=== PATIENT | female | born 1990 | race Two or more races ===

== ENCOUNTER 2021-05-26 12:11 | Outpatient (REF) | payer MEDICAID, SELFPAY | END 2021-05-26 12:12 | disposition home or self-care (01) | LOC: HO.LAB 12:11 | PROVIDERS: Visit Provider Internal Medicine | DX: Z20.822 Contact with and (suspected) exposure to COVID-19 (principal) | CPT/HCPCS: C9803; U0003; U0005 ==

== ENCOUNTER 2021-09-15 14:21 | Outpatient (REF) | payer MEDICAID, SELFPAY ==
--- NOTE | ~2021-09-15 | XR_ITS ---
EXAMINATION: XR WRIST, RIGHT CLINICAL INFORMATION: Pain following fall on outstretched hand. COMPARISON: None TECHNIQUE: PA, lateral, oblique, and scaphoid views of the right wrist. FINDINGS: No acute fracture or dislocation. Normal carpal alignment. No joint space narrowing or marginal osteophytes. No osseous erosion. No abnormal soft tissue calcification. XR/XR wrist RT min 3V IMPRESSION: Unremarkable examination.
--- NOTE | ~2021-09-15 | XR_ITS ---
EXAMINATION: XR FEMUR, RIGHT CLINICAL INFORMATION: Pain. COMPARISON: None TECHNIQUE: AP and lateral views of the right femur were obtained. FINDINGS: No acute fracture or dislocation. No joint space narrowing or marginal osteophytes. No lytic or blastic osseous lesion. No abnormal soft tissue calcification. XR/XR femur RT 2V IMPRESSION: Unremarkable examination.
== END 2021-09-15 14:22 | disposition home or self-care (01) ==
LOC: HO.XRAY 14:21
PROVIDERS: Absent Provider Internal Medicine; PCP Internal Medicine; Visit Provider Family Medicine
DX: M25.531 Pain in right wrist (principal); M79.601 Pain in right arm
CPT/HCPCS: 73110; 73552

== ENCOUNTER 2021-10-01 16:00 | Outpatient (RCR) | payer MEDICAID, SELFPAY | END 2021-10-08 11:27 | disposition home or self-care (01) | LOC: HO.PT 16:00 | PROVIDERS: PCP Internal Medicine; Visit Provider Internal Medicine | DX: M54.50 Low back pain, unspecified (principal) | CPT/HCPCS: 97110; 97162 ==

== ENCOUNTER → 2021-12-15 13:25 | Outpatient (BNVA) | payer MEDICAID, SELFPAY | PROVIDERS: PCP Internal Medicine; Referring Provider Internal Medicine; Visit Provider Internal Medicine | DX: Q24.9 Congenital malformation of heart, unspecified (principal); Z98.890 Other specified postprocedural states | CPT/HCPCS: 93005; 99202 ==

== ENCOUNTER → 2022-02-03 15:13 | Outpatient (REF) | payer MEDICAID, SELFPAY ==
--- NOTE | 2022-02-03 15:17 | CA_ITS ---
Transthoracic Echocardiogram Patient (Last, First, Middle): Ruth Healy, Gender: Female Date of : 1990 Age: 32 Procedure Date: 02/03/2022 Procedure Type: Transthoracic Echocardiogram Location: OP Height: 149.86 cm Weight: 79.38 kg BSA: 1.74 m2 Heart Rate: bpm BP: 110 / 60 mmHg Traffic Reporter: JER Referring MD: Raymond Perez MD [facility] Immunology Chief: Sang Schilling MD Symptoms: Q24.9 - Congenital malformation of heart, unspecified Study Quality: Fair ECG Rhythm: Sinus Conclusions: - 1. Normal LV systolic function with LVEF of 55-60% with normal diastolic filling pattern, although global longitudinal strain is reduced which may suggest mild LV systolic dysfunction 2. Mild RV systolic dysfunction 3. Normal cardiac valvular Doppler 4. Normal RV systolic pressure 5. No gross pericardial effusion Findings Left Ventricle Normal left ventricular size, thickness, and systolic function. The visually estimated ejection fraction is between 55-60%. Spectral Doppler is indicative of a normal filling pattern. Right Ventricle Normal right ventricular cavity size. There is mildly decreased right ventricular systolic function. Atria Both atria are normal in size. Interatrial shunt cannot be excluded. Aortic Valve Normal aortic valve structure and function. There is no aortic valve stenosis. There is no aortic valve regurgitation. Mitral Valve Normal mitral valve structure and function. There is trace mitral valve regurgitation. There is no mitral valve stenosis. Pulmonic Valve The pulmonic valve was not well visualized. There is trace pulmonic valve regurgitation. Tricuspid Valve Likely normal tricuspid valve structure and function. There is trace tricuspid valve regurgitation. The right ventricular systolic pressure is normal. The right ventricular systolic pressure is 18 mmHg. Normal right atrial pressure. There is no evidence of pulmonary hypertension. Great Vessels All visible segments of the aorta are normal in size. The pulmonary artery was not well visualized. Venous The inferior vena cava is normal in size and collapses greater than 50% with inspiration. Pericardium/Pleural There is no evidence of pericardial effusion. Prior Study Comparison No prior study available for comparison. Recommendations, Care & Conclusions Consider a DAMION if clinically appropriate. Measurements 2D Linear Measurements IVSd: 0.61 0.6-0.9/0.6-1.0 cm LVIDd: 5.46 3.9-5.3/4.2-5.9 cm LVIDd Index: 3.14 2.4-3.2/2.2-3.1 cm/m2 LVIDs: 4.34 2.0-3.6 cm LVPWd: 0.48 0.7-1.1 cm Ao Root: 2.30 2.1-3.5 cm LA Diam: 4.10 2.7-3.8/3.0-4.0 cm LAIDs Index: 2.36 1.5-2.3 cm/m2 LV Mass: 123.51 67-162/88-224 g LV Mass Index: 70.98 43-95/49-115 g/m2 LVOT Diam: 1.60 3.0+(-)1.3 cm 2D Systolic Function EF 4C: 52.00 >55% EF 2C: 63.40 >55% EF BiP: 57.30 >55% Mitral Valve MV Pk E: 1.04 MV PK A: 0.56 MV Decel Time: 246.00 E/A: 1.80 E'Lateral: 9.90 E'Medial: 6.53 E/E' Med: 15.90 E/E' Lat: 10.50 PHT: 72.00 MVA PHT: 3.06 Decel [place]: 4.23 Aortic Valve AoV Pk Osvaldo: 1.46 AoV Mn Osvaldo: 1.01 AoV VTI: 0.31 AoV Pk Grad: 9.00 Aov Mn Grad: 5.00 IVY Cont.VTI: 1.54 LVOT LVOT Pk Osvaldo: 1.12 LVOT Mn Osvaldo: 0.87 LVOT VTI: 0.24 LVOT Pk Grad: 5.00 LVOT Mn Grad: 3.00 LVOT Diam: 1.60 LVOT Area: 2.01 Diastolic Function MV Pk E: 1.04 MV Pk A: 0.56 E/A: 1.80 E'Medial: 6.53 E/E' Med: 15.90 E' Laterial: 9.90 E/E' Lat: 10.50 Right Ventricle TAPSE (mm): 16.00 TVS' Osvaldo: 7.18 Tricuspid Valve TR Pk Osvaldo: 1.92 TR Pk Grad: 15.00 RA Press: 3.00 RVSP: 18.00 Great Vessels Aorta Ao Root-2D: 2.30 2.0-3.7 cm Sinus of Valsalva: 2.30 2.0-3.5 cm Ao Asc: 1.90 2.1-3.4 cm Ao Arch: 1.70 Ao Desc: 1.50 Pulmonary Veins Pulm Vein S/D 1.10 Pulmonary Valve PV Pk Osvaldo: 1.49 PV Min Osvaldo: 0.99 Peak PV Grad: 9.00 PV Mn Grad: 4.00 Updated in Other Vendor System with Status of Final Sang Schilling MD electronically signed on 02/04/2022 8:56:28 AM with status of Final
== END ==
LOC: HO.CARD 15:13
PROVIDERS: PCP Internal Medicine; Visit Provider Internal Medicine
DX: Q24.9 Congenital malformation of heart, unspecified (principal)
CPT/HCPCS: 93306

== ENCOUNTER → 2022-02-16 12:04 | Outpatient (BNVA) | payer MEDICAID, SELFPAY | PROVIDERS: PCP Internal Medicine; Referring Provider Internal Medicine; Visit Provider Internal Medicine | DX: Q24.9 Congenital malformation of heart, unspecified (principal) | CPT/HCPCS: 99212 ==

== ENCOUNTER 2022-11-11 16:24 | Emergency (ER) | payer MEDICAID, SELFPAY ==
--- NOTE | ~2022-11-11 | US_ITS ---
EXAMINATION: US PELVIS CLINICAL INFORMATION: Secondary amenorrhea COMPARISON: None available. TECHNIQUE: Ultrasound of the pelvis is performed using both transabdominal and transvaginal transducers along with Doppler. Transvaginal imaging is performed due to inadequate visualization transabdominally. FINDINGS: Uterus: The uterus is anteverted and measures 8.9 x 4.8 x 5.3 cm. The double wall endometrial thickness is 12 mm. The uterus is smooth in contour and has normal myometrial echogenicity. No visible fibroid. Nabothian cysts are present in the cervix Adnexa: Both ovaries are visualized. There is normal color flow to the adnexa. There is no ovarian torsion. There is no pelvic ascites or fluid collection. Right ovary measures 2.8 x 1.8 x 1.8 cm for a volume of 4.8 mL. Left ovary measures 2.7 x 1.8 x 1.6 cm for a volume of 4.1 mL. US/US pelvic and transvaginal IMPRESSION: Negative study.
[2022-11-11 16:49] VITALS: BP 136/68; PULSE 78; RESP 18; TEMP 36.4; O2SAT 97; BMI 39.4
--- NOTE | 2022-11-11 16:50 | ED.ABDPAIN ---
HPI - Abdominal Pain General Chief Complaint: Abdominal Pain <TONY Moreau - Last Filed: 11/11/22 16:53> Stated Complaint: Abdominal Pain/ No period in 2 months <TONY Moreau - Last Filed: 11/11/22 16:53> Time Seen by Provider: 11/11/22 19:41 <TONY Moreau - Last Filed: 11/11/22 16:53> Source: patient, RN notes reviewed and all round butcher <Timbo Gerber - Last Filed: 11/11/22 22:47> Mode of arrival: ambulatory <Timbo Gerber - Last Filed: 11/11/22 22:47> Limitations: language barrier <Timbo Gerber - Last Filed: 11/11/22 22:47> History of Present Illness HPI narrative: 32-year-old female with past medical history significant for tubal ligation presents for evaluation of abdominal pain. Patient reports that she has not had her menstrual cycle in 2 months which is abnormal for her She is sexually active but due to a tubal ligation 9 years ago did not believe she is She reports her pain is mild, 4 of 10 Denies any fevers or chills Denies any nausea vomiting, diarrhea. Does not feel that she is constipated <Timbo Gerber - Last Filed: 11/11/22 22:47> Related Data Home Medications: Previous Rx's Medication Instructions Recorded nitrofurantoin 100 mg PO BID #10 caps 11/11/22 monohydrate/macrocrystals 100 mg capsule (Macrobid) <TONY Moreau - Last Filed: 11/11/22 16:53> Allergies/Adverse Reactions: Allergies Allergy/AdvReac Type Severity Reaction Status Date / Time aspirin Allergy Unknown swelling Verified 02/16/22 12:35 all over <TONY Moreau - Last Filed: 11/11/22 16:53> Review of Systems Constitutional: Reports as per HPI, Denies chills, Denies fatigue, Denies fever(s) and Denies headache(s) <Timbo Gerber - Last Filed: 11/11/22 22:47> Denies headache(s) <Timbo Gerber - Last Filed: 11/11/22 22:47> Cardiovascular: Denies chest pain and Denies dyspnea <Timbo Gerber - Last Filed: 11/11/22 22:47> Respiratory: Denies cough and Denies dyspnea <Timbo Gerber - Last Filed: 11/11/22 22:47> Gastrointestinal: Reports abdominal pain, Denies constipation and Denies vomiting <Timbo Gerber - Last Filed: 11/11/22 22:47> Genitourinary: Denies dysuria <Timbo Gerber - Last Filed: 11/11/22 22:47> Comments: No menstrual cycle x2 months <Timbo Gerber - Last Filed: 11/11/22 22:47> Denies headache(s) and Denies focal weakness <Timbo Gerber - Last Filed: 11/11/22 22:47> Endocrine: Denies fatigue <Timbo Gerber - Last Filed: 11/11/22 22:47> [facility] Past Medical History Medical History: Medical History (Updated 11/11/22 @ 22:46 by Timbo Gerber) Congenital heart disease <TONY Moreau - Last Filed: 11/11/22 16:53> Surgical History: Surgical History History of heart surgery <TONY Moreau - Last Filed: 11/11/22 16:53> Family History Family History: Family History Father No problems noted. Mother No problems noted. <TONY Moreau - Last Filed: 11/11/22 16:53> Social History Social History: Social History Patient Tobacco Use Status: Never used Tobacco Advance Directives: No Advance Directives Information Provided: No <TONY Moreau - Last Filed: 11/11/22 16:53> Physical Exam ED Vital Signs: Vital Signs - 24 hr 11/11/22 16:49 11/11/22 17:44 11/11/22 20:00 Temperature 97.6 F 98.1 F 98.0 F Pulse Rate 78 71 70 Respiratory Rate 18 16 16 Blood Pressure 136/68 117/53 L 118/60 Pulse Oximetry 97 99 99 Oxygen Delivery Method Room Air Room Air Room Air BMI result Body Mass Index 39.4 <TONY Moreau - Last Filed: 11/11/22 16:53> Vital Signs - 24 hr 11/11/22 16:49 11/11/22 17:44 11/11/22 20:00 Temperature 97.6 F 98.1 F 98.0 F Pulse Rate 78 71 70 Respiratory Rate 18 16 16 Blood Pressure 136/68 117/53 L 118/60 Pulse Oximetry 97 99 99 Oxygen Delivery Method Room Air Room Air Room Air BMI result Body Mass Index 39.4 <Timbo Gerber - Last Filed: 11/11/22 22:47> Const General: healthy appearing, comfortable, no acute distress, alert and awake <Timbo Lan[place]winnett - Last Filed: 11/11/22 22:47> Nutritional Appearance: well nourished <Timbo O - Last Filed: 11/11/22 22:47> Orientation/consciousness: patient oriented x3 <Timbo Lan[place]inn[place] - Last Filed: 11/11/22 22:47> HENMT Head: Yes normocephalic and Yes atraumatic <Timbo - Last Filed: 11/11/22 22:47> Throat: Yes posterior oropharynx normal <Timbo [place] - Last Filed: 11/11/22 22:47> Eyes Eyelids: Yes eyelids normal <Timbo [place] - Last Filed: 11/11/22 22:47> Conjunctivae: conjunctivae normal <Timbo [place] - Last Filed: 11/11/22 22:47> Sclerae: sclerae normal < - Last Filed: 11/11/22 22:47> Corneas: corneas normal <Timbo - Last Filed: 11/11/22 22:47> Pupils: Equal, round and reactive pupils present <Timbo Curriey - Last Filed: 11/11/22 22:47> EOM: EOMs intact bilaterally < - Last Filed: 11/11/22 22:47> Neck Neck: Yes full ROM < Last Filed: 11/11/22 22:47> Resp Effort & Inspection: normal respiratory effort, able to speak in complete sentences, no audible wheezes and not labored < Last Filed: 11/11/22 22:47> Auscultation: clear to auscultation bilaterally < Last Filed: 11/11/22 22:47> Cardio Rate: regular rate < - Last Filed: 11/11/22 22:47> Rhythm: regular rhythm < - Last Filed: 11/11/22 22:47> GI Inspection: No distended < Last Filed: 11/11/22 22:47> Palpation (GI): Soft to palpation, not firm, Tenderness to palpation present (GI) suprapubicly, no guarding and not rigid < Last Filed: 11/11/22 22:47> Auscultation: normoactive bowel sounds < - Last Filed: 11/11/22 22:47> Skin General skin exam: no rashes or lesions noted and elasticity normal < Last Filed: 11/11/22 22:47> Neuro General: patient oriented x3 < Last Filed: 11/11/22 22:47> Cranial nerves: Yes CN's II-XII intact bilaterally, Yes Equal, round and reactive pupils present and Yes Bilaterally intact EOM present < Last Filed: 11/11/22 22:47> Cognition (Neuro): normal cognition < - Last Filed: 11/11/22 22:47> Extrem Other: Moving all extremities well without any obvious deformities < Last Filed: 11/11/22 22:47> Course Course Course Narrative: This is an RME: Additional HPI, ROS, PE not included below will be deferred to primary provider. 32-year-old female history of congenital heart disease presenting to the emergency department with complaints of diffuse abdominal pain and nausea x2 months. Reports she had an operation so she can get . Denies vomiting, fevers, chills, chest pain, shortness of breath, headache, vision changes, dizziness, vaginal bleeding/ discharge and weakness. Physical exam diffuse tenderness. Normoactive BS Plan labs, urine, HCG <TONY Moreau - Last Filed: 11/11/22 16:53> Reevaluation(s) Reevaluation #1: Patient's entire workup large unremarkable with exception of UTI. Lab work without significant abnormality, ultrasound without significant abnormality. This was all discussed with the patient. at this point is unclear whether patient has secondary amenorrhea. She is definitely not . But she will follow-up with her PCP/OBGYN regarding this <Timbo Gerber - Last Filed: 11/11/22 22:47> Time: 22:43 <Timbo Gerber - Last Filed: 11/11/22 22:47> Medical Decision Making Medical Decision Making [facility] Narrative: 32-year-old female presents for evaluation of lower abdominal pain and secondary amenorrhea. Her hCG is negative. A UA is still pending to rule out UTI. Will get an ultrasound to evaluate for uterine fibroids or masses. Patient's labs are within normal limits. She has no GI symptoms to suggest intra-abdominal infection. Therefore CT imaging will be deferred at this time. Vital signs are currently stable and the patient is quite well appearing <Timbo Gerber - Last Filed: 11/11/22 22:47> Differential Diagnosis Abdominal pain Early menopause Ectopic Uterine fibroids Ovarian cyst Constipation <Timbo Gerber - Last Filed: 11/11/22 22:47> Lab Data [facility] Lab Attestation statement: I reviewed the patient's lab results. <Timbo Gerber - Last Filed: 11/11/22 22:47> Result Diagrams: 11/11/22 17:30 11/11/22 17:30 <TONY Moreau - Last Filed: 11/11/22 16:53> Labs: Lab Results 11/11/22 11/11/22 11/11/22 Range/Units 17:30 17:30 17:30 WBC 7.2 (4.8-10.8) X10*3/uL RBC 4.65 (4.20-5.50) X10*6/uL Hgb 13.4 (12.0-16.0) g/dl Hct 39.9 (37.0-47.0) % MCV 85.8 (80.0-98.0) fL MCH 28.8 (27.0-33.0) pg MCHC 33.6 (31.0-35.0) g/dl RDW 12.0 (11.0-16.0) % Plt Count 322 (160-400) X10*3/uL MPV 10.1 (9.4-12.3) fL Immature Gran % (Auto) 0.3 (0.0-0.4) % Neut % (Auto) 66.9 (45-73) % Lymph % (Auto) 24.6 (20-40) % [place] % (Auto) 6.8 (2-11) % Eos % (Auto) 0.8 (0-4) % Baso % (Auto) 0.6 (0-2) % Lymph # (Auto) 1.8 (1.2-4.9) X10*3/uL [place] # (Auto) 0.5 (0.1-1.2) X10*3/uL Eos # (Auto) 0.1 (0.0-0.4) X10*3/uL Baso # (Auto) 0.0 (0.0-0.2) X10*3/uL Abs Immat Gran (auto) 0.02 (0.00-0.03) X10*3/uL Absolute Neuts (auto) 4.8 (2.0-8.3) x10*3/uL Absolute Nucleated RBC 0.000 (0.0-0.012) X10*3/uL Nucleated RBC % (auto) 0.0 (0.0-0.2) /100WBC Smear Tech's Comments VERIFIED Sodium 141 (135-145) mmol/L Potassium 4.4 (3.3-5.1) mmol/L Chloride 109 H (96-108) mmol/L Carbon Dioxide 24 (22-29) mmol/L Anion Gap 12 (12-20) BUN 10 (9-16) mg/dL Creatinine 0.79 (0.5-1.4) mg/dL Estim Creat Clear Calc 100.7 Estimated GFR > 60 Random Glucose 83 (60-115) mg/dL Calcium 9.3 (8.4-10.2) mg/dL Magnesium 2.0 (1.6-2.6) mg/dL Total Bilirubin 0.6 (0.0-1.0) mg/dL AST 19 (5-31) U/L ALT 16 (0-31) U/L Alkaline Phosphatase 96 (39-117) U/L Total Protein 7.5 (6.5-8.0) g/dL Albumin 4.1 (3.5-5.0) g/dL Lipase 13 (8-78) U/L Beta HCG, Quant < 2 mIU/mL Urine Color Urine Appearance Urine pH (5.0-9.0) Ur Specific [place] (1.005-1.025) Urine Protein (Neg-Trace) mg/dL Urine Glucose (UA) (Negative) mg/dL Urine Ketones (Negative) mg/dL Urine Blood (Negative) Urine Nitrite (Negative) Ur Leukocyte Esterase (Negative) Urine RBC (0-2) /HPF Urine WBC (0-5) /HPF Ur Squamous Epith Cells (0-2) /HPF Urine Bacteria (None Seen) Hyaline Casts (0-2) /LPF COVID-19 (LORRI) Negative (Negative) COVID-19 Clin Com See Note 11/11/22 Range/Units 20:56 WBC (4.8-10.8) X10*3/uL RBC (4.20-5.50) X10*6/uL Hgb (12.0-16.0) g/dl Hct (37.0-47.0) % MCV (80.0-98.0) fL MCH (27.0-33.0) pg MCHC (31.0-35.0) g/dl RDW (11.0-16.0) % Plt Count (160-400) X10*3/uL MPV (9.4-12.3) fL Immature Gran % (Auto) (0.0-0.4) % Neut % (Auto) (45-73) % Lymph % (Auto) (20-40) % [place] % (Auto) (2-11) % Eos % (Auto) (0-4) % Baso % (Auto) (0-2) % Lymph # (Auto) (1.2-4.9) X10*3/uL [place] # (Auto) (0.1-1.2) X10*3/uL Eos # (Auto) (0.0-0.4) X10*3/uL Baso # (Auto) (0.0-0.2) X10*3/uL Abs Immat Gran (auto) (0.00-0.03) X10*3/uL Absolute Neuts (auto) (2.0-8.3) x10*3/uL Absolute Nucleated RBC (0.0-0.012) X10*3/uL Nucleated RBC % (auto) (0.0-0.2) /100WBC Smear Tech's Comments Sodium (135-145) mmol/L Potassium (3.3-5.1) mmol/L Chloride (96-108) mmol/L Carbon Dioxide (22-29) mmol/L Anion Gap (12-20) BUN (9-16) mg/dL Creatinine (0.5-1.4) mg/dL Estim Creat Clear Calc Estimated GFR Random Glucose (60-115) mg/dL Calcium (8.4-10.2) mg/dL Magnesium (1.6-2.6) mg/dL Total Bilirubin (0.0-1.0) mg/dL AST (5-31) U/L ALT (0-31) U/L Alkaline Phosphatase (39-117) U/L Total Protein (6.5-8.0) g/dL Albumin (3.5-5.0) g/dL Lipase (8-78) U/L Beta HCG, Quant mIU/mL Urine Color Yellow Urine Appearance Clear Urine pH 6.0 (5.0-9.0) Ur Specific [place] 1.025 (1.005-1.025) Urine Protein Negative (Neg-Trace) mg/dL Urine Glucose (UA) Negative (Negative) mg/dL Urine Ketones Negative (Negative) mg/dL Urine Blood Trace H (Negative) Urine Nitrite Negative (Negative) Ur Leukocyte Esterase Moderate (2+) H (Negative) Urine RBC 0-2 (0-2) /HPF Urine WBC 6-10 H (0-5) /HPF Ur Squamous Epith Cells 6-10 (0-2) /HPF Urine Bacteria 2+ (None Seen) Hyaline Casts 0-2 (0-2) /LPF COVID-19 (LORRI) (Negative) COVID-19 Clin Com <TONY Moreau - Last Filed: 11/11/22 16:53> Lab Results 11/11/22 11/11/22 11/11/22 Range/Units 17:30 17:30 17:30 WBC 7.2 (4.8-10.8) X10*3/uL RBC 4.65 (4.20-5.50) X10*6/uL Hgb 13.4 (12.0-16.0) g/dl Hct 39.9 (37.0-47.0) % MCV 85.8 (80.0-98.0) fL MCH 28.8 (27.0-33.0) pg MCHC 33.6 (31.0-35.0) g/dl RDW 12.0 (11.0-16.0) % Plt Count 322 (160-400) X10*3/uL MPV 10.1 (9.4-12.3) fL Immature Gran % (Auto) 0.3 (0.0-0.4) % Neut % (Auto) 66.9 (45-73) % Lymph % (Auto) 24.6 (20-40) % [place] % (Auto) 6.8 (2-11) % Eos % (Auto) 0.8 (0-4) % Baso % (Auto) 0.6 (0-2) % Lymph # (Auto) 1.8 (1.2-4.9) X10*3/uL [place] # (Auto) 0.5 (0.1-1.2) X10*3/uL Eos # (Auto) 0.1 (0.0-0.4) X10*3/uL Baso # (Auto) 0.0 (0.0-0.2) X10*3/uL Abs Immat Gran (auto) 0.02 (0.00-0.03) X10*3/uL Absolute Neuts (auto) 4.8 (2.0-8.3) x10*3/uL Absolute Nucleated RBC 0.000 (0.0-0.012) X10*3/uL Nucleated RBC % (auto) 0.0 (0.0-0.2) /100WBC Smear Tech's Comments VERIFIED Sodium 141 (135-145) mmol/L Potassium 4.4 (3.3-5.1) mmol/L Chloride 109 H (96-108) mmol/L Carbon Dioxide 24 (22-29) mmol/L Anion Gap 12 (12-20) BUN 10 (9-16) mg/dL Creatinine 0.79 (0.5-1.4) mg/dL Estim Creat Clear Calc 100.7 Estimated GFR > 60 Random Glucose 83 (60-115) mg/dL Calcium 9.3 (8.4-10.2) mg/dL Magnesium 2.0 (1.6-2.6) mg/dL Total Bilirubin 0.6 (0.0-1.0) mg/dL AST 19 (5-31) U/L ALT 16 (0-31) U/L Alkaline Phosphatase 96 (39-117) U/L Total Protein 7.5 (6.5-8.0) g/dL Albumin 4.1 (3.5-5.0) g/dL Lipase 13 (8-78) U/L Beta HCG, Quant < 2 mIU/mL Urine Color Urine Appearance Urine pH (5.0-9.0) Ur Specific [place] (1.005-1.025) Urine Protein (Neg-Trace) mg/dL Urine Glucose (UA) (Negative) mg/dL Urine Ketones (Negative) mg/dL Urine Blood (Negative) Urine Nitrite (Negative) Ur Leukocyte Esterase (Negative) Urine RBC (0-2) /HPF Urine WBC (0-5) /HPF Ur Squamous Epith Cells (0-2) /HPF Urine Bacteria (None Seen) Hyaline Casts (0-2) /LPF COVID-19 (LORRI) Negative (Negative) COVID-19 Clin Com See Note 11/11/22 Range/Units 20:56 WBC (4.8-10.8) X10*3/uL RBC (4.20-5.50) X10*6/uL Hgb (12.0-16.0) g/dl Hct (37.0-47.0) % MCV (80.0-98.0) fL MCH (27.0-33.0) pg MCHC (31.0-35.0) g/dl RDW (11.0-16.0) % Plt Count (160-400) X10*3/uL MPV (9.4-12.3) fL Immature Gran % (Auto) (0.0-0.4) % Neut % (Auto) (45-73) % Lymph % (Auto) (20-40) % [place] % (Auto) (2-11) % Eos % (Auto) (0-4) % Baso % (Auto) (0-2) % Lymph # (Auto) (1.2-4.9) X10*3/uL [place] # (Auto) (0.1-1.2) X10*3/uL Eos # (Auto) (0.0-0.4) X10*3/uL Baso # (Auto) (0.0-0.2) X10*3/uL Abs Immat Gran (auto) (0.00-0.03) X10*3/uL Absolute Neuts (auto) (2.0-8.3) x10*3/uL Absolute Nucleated RBC (0.0-0.012) X10*3/uL Nucleated RBC % (auto) (0.0-0.2) /100WBC Smear Tech's Comments Sodium (135-145) mmol/L Potassium (3.3-5.1) mmol/L Chloride (96-108) mmol/L Carbon Dioxide (22-29) mmol/L Anion Gap (12-20) BUN (9-16) mg/dL Creatinine (0.5-1.4) mg/dL Estim Creat Clear Calc Estimated GFR Random Glucose (60-115) mg/dL Calcium (8.4-10.2) mg/dL Magnesium (1.6-2.6) mg/dL Total Bilirubin (0.0-1.0) mg/dL AST (5-31) U/L ALT (0-31) U/L Alkaline Phosphatase (39-117) U/L Total Protein (6.5-8.0) g/dL Albumin (3.5-5.0) g/dL Lipase (8-78) U/L Beta HCG, Quant mIU/mL Urine Color Yellow Urine Appearance Clear Urine pH 6.0 (5.0-9.0) Ur Specific [place] 1.025 (1.005-1.025) Urine Protein Negative (Neg-Trace) mg/dL Urine Glucose (UA) Negative (Negative) mg/dL Urine Ketones Negative (Negative) mg/dL Urine Blood Trace H (Negative) Urine Nitrite Negative (Negative) Ur Leukocyte Esterase Moderate (2+) H (Negative) Urine RBC 0-2 (0-2) /HPF Urine WBC 6-10 H (0-5) /HPF Ur Squamous Epith Cells 6-10 (0-2) /HPF Urine Bacteria 2+ (None Seen) Hyaline Casts 0-2 (0-2) /LPF COVID-19 (LORRI) (Negative) COVID-19 Clin Com <Timbo Gerber - Last Filed: 11/11/22 22:47> Independent Interpretation I performed an independent interpretation of an: Ultrasound (No significant abnormality) <Timbo Gerber - Last Filed: 11/11/22 22:47> Discharge Plan Discharge Clinical Impression: Urinary tract infection, Amenorrhea, secondary <TONY Moreau - Last Filed: 11/11/22 16:53> Patient Disposition: Home, Self-Care <TONY Moreau - Last Filed: 11/11/22 16:53> Instructions: Urinary Tract Infection in Women (DC) <TONY Moreau - Last Filed: 11/11/22 16:53> Additional Instructions: Take Macrobid twice daily for the next 5 days to treat urinary tract infection. Her blood work and ultrasound today was without any abnormal findings Follow-up with your OBGYN to discuss why you are no longer having her. <TONY Moreau - Last Filed: 11/11/22 16:53> Prescriptions: New nitrofurantoin monohyd/m-cryst [Macrobid] 100 mg capsule 100 mg PO BID Qty: 10 0RF Rx Instructions: must administer with a meal/food <TONY Moreau - Last Filed: 11/11/22 16:53>
[2022-11-11 17:44] VITALS: BP 117/53; PULSE 71; RESP 16; TEMP 36.7; O2SAT 99
[2022-11-11 17:47] LABS: Basophils Percent Auto 0.6 % (0-2); Eosinophils Absolute Auto 0.1 X10*3/uL (0.0-0.4); Eosinophils Percent Auto 0.8 % (0-4); PLT CLUMP 1; SCAN SMEAR FLAG 1
[2022-11-11 17:49] LABS: Hematocrit 39.9 % (37.0-47.0); Hemoglobin 13.4 g/dl (12.0-16.0); Imm Gran Abs Auto 0.02 X10*3/uL (0.00-0.03); Imm Gran Pct Auto 0.3 % (0.0-0.4); Lymphocytes Absolute Auto 1.8 X10*3/uL (1.2-4.9); Lymphocytes Percent Auto 24.6 % (20-40); MANUAL DIFF FLAG SCAN; Mean Corpuscular HGB Conc 33.6 g/dl (31.0-35.0); Mean Corpuscular Hemoglobin 28.8 pg (27.0-33.0); Mean Corpuscular Volume 85.8 fL (80.0-98.0); Mean Platelet Volume 10.1 fL (9.4-12.3); Monocytes Absolute Auto 0.5 X10*3/uL (0.1-1.2); Monocytes Percent Auto 6.8 % (2-11); Neutrophils Absolute Auto 4.8 x10*3/uL (2.0-8.3); Neutrophils Percent Auto 66.9 % (45-73); Red Blood Count 4.65 X10*6/uL (4.20-5.50)
[2022-11-11 17:52] LABS: COVID-19 Test Negative (Negative); IDNOW Serial# BCCEAD1C
[2022-11-11 17:59] LABS: Alanine Aminotransferase 16 U/L (0-31); Albumin Level 4.1 g/dL (3.5-5.0); Alkaline Phosphatase 96 U/L (39-117); Anion Gap 12 (12-20); Aspartate Amino Transferase 19 U/L (5-31); Bilirubin Total 0.6 mg/dL (0.0-1.0); Blood Urea Nitrogen 10 mg/dL (9-16); Calcium 9.3 mg/dL (8.4-10.2); Carbon Dioxide 24 mmol/L (22-29); Chloride 109 mmol/L (96-108); Creatinine Clr Calc Pharmacy 100.7; Estimated Glomerular Filt Rate > 60; Glucose Random 83 mg/dL (60-115); HCG Quantitative < 2 mIU/mL; Lipase 13 U/L (8-78); Potassium 4.4 mmol/L (3.3-5.1); Sodium 141 mmol/L (135-145); Total Protein 7.5 g/dL (6.5-8.0)
[2022-11-11 18:12] LABS: Platelet Count 322 X10*3/uL (160-400); White Blood Count 7.2 X10*3/uL (4.8-10.8)
[2022-11-11 18:13] LABS: SLIDE REVIEW VERIFIED
[2022-11-11 20:00] VITALS: BP 118/60; PULSE 70; RESP 16; TEMP 36.7; O2SAT 99
[2022-11-11 21:17] LABS: Appearance Urine Clear; Color Urine Yellow; Glucose Urine UA Negative (Negative); Leukocyte Esterase Urine Moderate (2+) (Negative); Nitrite Urine Negative (Negative); Specific Gravity - Urine 1.025 (1.005-1.025); UMIC TRIGGER UACC YES; Urine Blood Trace (Negative); Urine Ketones Negative (Negative); Urine Protein Negative (Neg-Trace)
[2022-11-11 21:22] LABS: Bacteria Urine 2+ (None Seen); Hyaline Casts Urine 0-2 /LPF (0-2); RBC Urine 0-2 /HPF (0-2); UACC Culture Trigger YES
== END 2022-11-11 23:05 | disposition home or self-care (01) ==
PROVIDERS: Physician Assistant; Emergency Provider Emergency Medicine Emergency Medical Services; PCP Internal Medicine
DX: N39.0 Urinary tract infection, site not specified (principal); N91.0 Primary amenorrhea; Z20.822 Contact with and (suspected) exposure to COVID-19; Z20.828 Contact with and (suspected) exposure to other viral communicable diseases; Z79.899 Other long term (current) drug therapy
CPT/HCPCS: 36415; 76830; 76856; 80053; 81001; 81003; 83690; 83735; 84702; 85025; 87086; 87147; 87635; 99284

== ENCOUNTER 2023-04-09 22:35 | Emergency (ER) | payer MEDICAID, SELFPAY ==
[2023-04-09 22:41] VITALS: BP 113/50; PULSE 74; RESP 18; TEMP 37.2; O2SAT 96; BMI 37.4
--- NOTE | 2023-04-10 00:38 | ED.GENADULT ---
HPI - General Adult General Chief complaint: Allergic Reaction Stated complaint: Allergic Reaction Time Seen by Provider: 04/10/23 00:27 Source: patient Mode of arrival: ambulatory Limitations: no limitations History of Present Illness HPI narrative: Patient comes to the emergency room complaining of a possible allergic reaction. Patient states that she is known to be allergic to aspirin. However, she has not had any exposure to aspirin. Patient states that yesterday she started having hives head to toe. Prior to arrival, patient took 2 tablets of Benadryl 25 mg each. Patient denies any difficulty breathing, patient complaining of itchy hives Related Data Previous Rx's Medication Instructions Recorded nitrofurantoin 100 mg PO BID #10 caps 11/11/22 monohydrate/macrocrystals 100 mg capsule (Macrobid) famotidine 40 mg tablet (Pepcid) 40 mg PO DAILY #2 tabs 04/10/23 prednisone 50 mg tablet 50 mg PO DAILY #2 tabs 04/10/23 Allergies Allergy/AdvReac Type Severity Reaction Status Date / Time aspirin Allergy Unknown swelling Verified 02/16/22 12:35 all over Review of Systems Review of Systems: Constitutional : No Weight loss, No Fever, No Chills, No Night Sweats, No Fatigue, No Malaise ENT/Mouth : No Hearing loss, No Ear Pain, No Nasal Congestion, No Sinus Pain, No Hoarseness, No sore throat, No Rhinorrhea, No Swallowing Difficulty Eyes: No Eye Pain, No Swelling, No Redness, No Foreign Body, No Discharge, No Vision Changes Cardiovascular : No Chest Pain, No SOB, No Dyspnea on Exertion, No Orthopnea, No Edema, No Palpitations Respiratory : No Cough, No Sputum, No Wheezing, No Smoke Exposure, No Dyspnea Gastrointestinal : No Nausea, No Vomiting, No Diarrhea, No Constipation, No abdominal Pain, No Hematochezia, No Melena Genitourinary : no irregular bleeding, No Dysuria, No Urinary Frequency, No Hematuria, No Urinary Incontinence, No Urgency, No Flank Pain, No Urinary Flow Changes, No Hesitancy Musculoskeletal : No joint pain, No Myalgias, No Joint Swelling Skin : Complaining of itchy hives head to toe Neuro : No Weakness, No Numbness, No Paresthesias, No Loss of Consciousness, No Dizziness, No Headache Psych : No Anxiety/Panic, No Depression, No SI/HI/AH/VH, No Social Issues, Heme/Lymph: No Bruising, No Bleeding,No Lymphadenopathy Endocrine : No Polyuria, No Polydipsia, No Temperature Intolerance [facility] Past Medical History Medical History Congenital heart disease Surgical History History of heart surgery Family History Family History Father No problems noted. Mother No problems noted. Social History Social History Alcohol intake: never Patient Tobacco Use Status: Never used Tobacco Physical Exam ED Vital Signs: Vital Signs - 24 hr 04/09/23 22:41 Temperature 99.0 F Pulse Rate 74 Respiratory Rate 18 Blood Pressure 113/50 L Pulse Oximetry 96 Oxygen Delivery Method Room Air BMI result Body Mass Index 37.4 Const Other: Appearance: Alert. Oriented X3. No acute distress. Eyes: Pupils equal, round and reactive to light. ENT: Pharynx normal. Neck: Normal inspection. Neck supple. No lymph nodes noted. No crepitus CVS: Normal heart rate and rhythm. Pulses normal. Normal S1 and S2 Respiratory: No respiratory distress. Breath sounds normal. No Wheezing. No rales Abdomen: Soft and nontender. No rigidity. No distention. Skin: Skin warm and dry. Skin nearly back to normal, very mild or thicker in the back, resolved in extremities and abdomen Extremities: No lower extremity edema. No Lacerations. No Rash Neuro: Oriented X 3. No motor deficit. No sensory deficit. Moving all extremities. No slurred speech. CN 2 through 12 grossly intact Psych: calm, cooperative, normal affect Medical Decision Making Medical Decision Making MDM Narrative: -patient already took Benadryl, patient given prednisone in the ED and famotidine. -patient has hives nearly resolved. Patient's vital stable, oxygen saturation 96% on room air. Differential Diagnosis Differential Diagnoses: The differential diagnosis associated with the presentation includes (Allergic reaction, contact dermatitis, skin irritation) Discharge Plan Discharge Clinical Impression: Allergic reaction Patient Disposition: Home, Self-Care Instructions: Allergies (ED), Allergy Testing (ED) Additional Instructions: Please follow-up with your primary care physician. You may need to be referred to immunology for skin allergy testing. Please follow-up with your primary care physician tomorrow. If you have any worsening or new symptoms, please return to the emergency room or call 911 Prescriptions: New prednisone 50 mg tablet 50 mg PO DAILY Qty: 2 0RF famotidine [Pepcid] 40 mg tablet 40 mg PO DAILY Qty: 2 0RF No Action nitrofurantoin monohyd/m-cryst [Macrobid] 100 mg capsule 100 mg PO BID Qty: 10 0RF Rx Instructions: must administer with a meal/food
[2023-04-10] MEDS: predniSONE 20 MG TABLET 60 MG PO (00:43)
[2023-04-10] MEDS: Famotidine 20 MG TABLET PO (00:43)
== END 2023-04-10 00:56 | disposition home or self-care (01) ==
PROVIDERS: Emergency Provider Emergency Medicine
DX: T78.40XA Allergy, unspecified, initial encounter (principal); X58.XXXA Exposure to other specified factors, initial encounter; L50.9 Urticaria, unspecified; R06.00 Dyspnea, unspecified
CPT/HCPCS: 99283; 99284

== ENCOUNTER 2023-04-12 01:19 | Emergency (ER) | payer MEDICAID, SELFPAY ==
[2023-04-12 01:31] VITALS: BP 120/62; PULSE 69; RESP 16; TEMP 36.9; O2SAT 98; BMI 57.6
--- NOTE | 2023-04-12 01:42 | ED_ITS ---
HPI - Allergic Reaction General Chief complaint: Allergic Reaction Stated complaint: Rash, hives Time Seen by Provider: 04/12/23 01:37 Source: patient Mode of arrival: ambulatory Limitations: no limitations History of Present Illness HPI narrative: Patient comes in the emergency room complaining of hives. Patient states that approximately 8 hours ago, patient started noticing hives in her arms. Patient has no difficulty breathing, no angioedema. Patient was seen here 2 days ago, had similar symptoms, improved in the hospital and was discharged home. Patient states that she already made an appointment with her PCP, she will be seen the next 2 days, likely to be referred to immunology Related Data Previous Rx's Medication Instructions Recorded nitrofurantoin 100 mg PO BID #10 caps 11/11/22 monohydrate/macrocrystals 100 mg capsule (Macrobid) famotidine 40 mg tablet (Pepcid) 40 mg PO DAILY #2 tabs 04/10/23 prednisone 50 mg tablet 50 mg PO DAILY #2 tabs 04/10/23 Allergies Allergy/AdvReac Type Severity Reaction Status Date / Time aspirin Allergy Unknown swelling Verified 02/16/22 12:35 all over Review of Systems Review of Systems: Constitutional : No Weight loss, No Fever, No Chills, No Night Sweats, No Fatigue, No Malaise ENT/Mouth : No Hearing loss, No Ear Pain, No Nasal Congestion, No Sinus Pain, No Hoarseness, No sore throat, No Rhinorrhea, No Swallowing Difficulty Eyes: No Eye Pain, No Swelling, No Redness, No Foreign Body, No Discharge, No Vision Changes Cardiovascular : No Chest Pain, No SOB, No Dyspnea on Exertion, No Orthopnea, No Edema, No Palpitations Respiratory : Complaining of GERD, No Cough, No Sputum, No Wheezing, No Smoke Exposure, No Dyspnea Gastrointestinal : No Nausea, No Vomiting, No Diarrhea, No Constipation, No abdominal Pain, No Hematochezia, No Melena Genitourinary : no irregular bleeding, No Dysuria, No Urinary Frequency, No Hematuria, No Urinary Incontinence, No Urgency, No Flank Pain, No Urinary Flow Changes, No Hesitancy Musculoskeletal : No joint pain, No Myalgias, No Joint Swelling Skin : Complaining of hives and itchiness Neuro : No Weakness, No Numbness, No Paresthesias, No Loss of Consciousness, No Dizziness, No Headache Psych : No Anxiety/Panic, No Depression, No SI/HI/AH/VH, No Social Issues, Heme/Lymph: No Bruising, No Bleeding,No Lymphadenopathy Endocrine : No Polyuria, No Polydipsia, No Temperature Intolerance [facility] Past Medical History Medical History Congenital heart disease Surgical History History of heart surgery Family History Family History Father No problems noted. Mother No problems noted. Social History Social History Alcohol intake: never Patient Tobacco Use Status: Never used Tobacco Advance Directives: No Advance Directives Information Provided: Yes Physical Exam ED Vital Signs: Vital Signs - 24 hr 04/12/23 01:31 04/12/23 01:48 Temperature 98.5 F 98.6 F Pulse Rate 69 77 Respiratory Rate 16 15 Blood Pressure 120/62 115/43 L Pulse Oximetry 98 100 Oxygen Delivery Method Room Air Room Air BMI result Body Mass Index 57.6 Const Other: Appearance: Alert. Oriented X3. No acute distress. Eyes: Pupils equal, round and reactive to light. ENT: Pharynx normal. No angioedema Neck: Normal inspection. Neck supple. No lymph nodes noted. No crepitus CVS: Normal heart rate and rhythm. Pulses normal. Normal S1 and S2 Respiratory: No respiratory distress. Breath sounds normal. No Wheezing. No rales Abdomen: Soft and nontender. No rigidity. No distention. Skin: Hives in face chest and arms Extremities: No lower extremity edema. No Lacerations. No Rash Neuro: Oriented X 3. No motor deficit. No sensory deficit. Moving all extremities. No slurred speech. CN 2 through 12 grossly intact Psych: calm, cooperative, normal affect Course Course Course Narrative: -patient receiving IV Solu-Medrol, Benadryl, Pepcid. -also patient complaining of anxiety, states that she has GERD -discussed with the patient that this is likely an environmental factor that she keeps getting re-exposed to which causes allergic reaction. Medications Administered Discontinued Medications Generic Name Dose Route Start Last Admin Trade Name Freq PRN Reason Stop Dose Admin Diphenhydramine HCl 50 mg 04/12/23 01:41 04/12/23 01:56 Diphenhydramine Hcl 50 Mg/Ml Vial IVPUSH 04/12/23 01:42 50 mg ONCE ONE Administration Famotidine 20 mg 04/12/23 01:41 04/12/23 01:56 Famotidine/Pf 20 Mg/2 Ml Vial IVPUSH 04/12/23 01:42 20 mg ONCE ONE Administration Lorazepam 1 mg 04/12/23 01:41 04/12/23 01:56 Lorazepam 1 Mg Tablet PO 04/12/23 01:42 1 mg ONCE ONE Administration Methylprednisolone Sodium Succinate 125 mg 04/12/23 01:41 04/12/23 01:56 Methylprednisolone Sod Succ 125 Mg/2 Ml Vial IVPUSH 04/12/23 01:42 125 mg ONCE ONE Administration Medical Decision Making Medical Decision Making MDM Narrative: -hives resolved. -discussed with the patient that she likely has environmental allergies, patient has an appointment pending with PCP Differential Diagnosis Differential Diagnoses: The differential diagnosis associated with the presentation includes (Environmental allergies, food allergies, hypersensitivity reaction) Admission/Observation Consideration of admission/observation: Escalation of care including admission/observation considered (Patient came in with hives, repeated allergic reaction, patient was considered) Critical Care Time Critical Care Time Critical Care Time: Yes Total Critical Care Time: 45 Attestation: Please follow-up with your primary care physician tomorrow. If you have any worsening or new symptoms, please return to the emergency room or call 911 Discharge Plan Discharge Clinical Impression: Allergic reaction Patient Disposition: Home, Self-Care Instructions: Allergy Testing (ED), General Allergic Reaction (ED) Additional Instructions: Please follow-up with your primary care physician tomorrow. If you have any worsening or new symptoms, please return to the emergency room or call 911 Prescriptions: No Action nitrofurantoin monohyd/m-cryst [Macrobid] 100 mg capsule 100 mg PO BID Qty: 10 0RF Rx Instructions: must administer with a meal/food prednisone 50 mg tablet 50 mg PO DAILY Qty: 2 0RF famotidine [Pepcid] 40 mg tablet 40 mg PO DAILY Qty: 2 0RF
[2023-04-12 01:48] VITALS: BP 115/43; PULSE 77; RESP 15; TEMP 37; O2SAT 100
[2023-04-12] MEDS: Famotidine/PF 20 MG/2 ML VIAL IVPUSH (01:56)
[2023-04-12] MEDS: LORazepam 1 MG TABLET PO (01:56)
[2023-04-12] MEDS: methylPREDNISolone Sod Succ 125 MG/2 ML VIAL IVPUSH (01:56)
[2023-04-12] MEDS: diphenhydrAMINE HCL 50 MG/ML VIAL IVPUSH (01:56)
[2023-04-12 03:49] VITALS: BP 111/46; PULSE 59; RESP 18; TEMP 37.1; O2SAT 97
== END 2023-04-12 05:19 | disposition home or self-care (01) ==
PROVIDERS: Emergency Provider Emergency Medicine
DX: L50.0 Allergic urticaria (principal)
CPT/HCPCS: 96374; 96375; 99284; J1200; J2930

== ENCOUNTER 2023-04-14 21:28 | Emergency (ER) | payer MEDICAID, SELFPAY ==
[2023-04-14 21:32] VITALS: BP 110/66; PULSE 73; RESP 18; TEMP 36.8; O2SAT 98; BMI 37.2
--- NOTE | 2023-04-14 22:10 | PC.NURSE ---
Clinical Medical Transcriptionist present during assessement. Pt yakut speaking only, A/OX4, seen 2 days ago for same sx, presented with itchy, light pink colored full body rash, pt states rash has improved but still present. Pt states SOB/throat tightness yesterday symptoms not currently present. VSS, denies pain.
--- NOTE | 2023-04-14 23:15 | ED_ITS ---
HPI - Allergic Reaction General Chief complaint: Allergic Reaction Stated complaint: body rash Time Seen by Provider: 04/14/23 22:56 Source: patient Mode of arrival: ambulatory Limitations: language barrier (Setswana-speaking remote medical coder utilized) History of Present Illness HPI narrative: Patient is a 33-year-old female who presents emergency department for evaluation of diffuse urticaria. Initial onset of symptoms was 4 days ago, of unknown etiology. They are pruritic in nature. She has not had any respiratory involvement. She states she has been seen in the emergency department previously and her symptoms resolved but they then returned again. At this time she denies any chest pain, shortness of breath, difficulty breathing. Related Data Previous Rx's Medication Instructions Recorded nitrofurantoin 100 mg PO BID #10 caps 11/11/22 monohydrate/macrocrystals 100 mg capsule (Macrobid) famotidine 40 mg tablet (Pepcid) 40 mg PO DAILY #2 tabs 04/10/23 prednisone 50 mg tablet 50 mg PO DAILY #2 tabs 04/10/23 omeprazole 20 mg capsule,delayed 20 mg PO DAILY #30 caps 04/15/23 release Allergies Allergy/AdvReac Type Severity Reaction Status Date / Time aspirin Allergy Unknown swelling Verified 04/14/23 21:40 all over Review of Systems Review of Systems: Yes all other systems are reviewed and are negative PMFSH Past Medical History Attestation statement: The following information was validated with the patient. Source: old records reviewed Medical History Congenital heart disease Surgical History History of heart surgery Family History Family History Father No problems noted. Mother No problems noted. Social History Social History Alcohol intake: never Patient Tobacco Use Status: Never used Tobacco Smoked in Last 30 Days: No Use of substances other than those prescribed or required for medical reasons: No Advance Directives: No Advance Directives Information Provided: No Patient : No Physical Exam ED Vital Signs: Vital Signs - 24 hr 04/14/23 21:32 04/15/23 00:44 Temperature 98.2 F Pulse Rate 73 Respiratory Rate 18 17 Blood Pressure 110/66 Pulse Oximetry 98 Oxygen Delivery Method Room Air BMI result Body Mass Index 37.2 Appearance: Alert.?Oriented to person, place and time. No acute distress.?Normal affect. Eyes: Pupils equal, round and reactive to light.? ENT: Pharynx normal.??Uvula midline. No angioedema. Neck: Normal inspection.? Neck supple.?? CVS: Heart sounds normal. Normal heart rate and rhythm.? Pulses normal.?? Respiratory: No respiratory distress.? Lung sounds clear to auscultation bilaterally?? Abdomen: Soft and non-tender. Normoactive bowel sounds. Skin: Skin warm and dry.? Normal skin color.? Urticaria of the bilateral upper and lower extremities, chest, back Extremities: No lower extremity edema.? Neuro: Moves all extremities spontaneously. Sensation intact bilaterally. Ambulates with normal steady gait. Medications Administered Discontinued Medications Generic Name Dose Route Start Last Admin Trade Name Freq PRN Reason Stop Dose Admin Diphenhydramine HCl 50 mg 04/15/23 00:37 04/15/23 00:58 Diphenhydramine Hcl 50 Mg/Ml Vial IVPUSH 04/15/23 00:38 50 mg ONCE ONE Administration Famotidine 20 mg 04/15/23 00:37 04/15/23 00:58 Famotidine/Pf 20 Mg/2 Ml Vial IVPUSH 04/15/23 00:38 20 mg ONCE ONE Administration Methylprednisolone Sodium Succinate 125 mg 04/15/23 00:37 04/15/23 00:58 Methylprednisolone Sod Succ 125 Mg/2 Ml Vial IVPUSH 04/15/23 00:38 125 mg ONCE ONE Administration Medical Decision Making Medical Decision Making [facility] Narrative: Patient is a 33-year-old female who presents emergency department for evaluation of recurrent urticaria. She has no respiratory compromise, no angioedema. She is speaking clear full sentences. Of note, patient was seen in the emergency department regarding the same symptoms on 04/10/2023 and 04/12/2023. She has previously responded to treatment with Solu-Medrol, diphenhydramine, and famotidine, received medication today with resolution of the urticaria. We discussed that this is likely some type of environmental/food allergy and requires further follow-up. She was advised to follow up outpatient with her primary care provider, and obtain referral to linux unix engineer for further evaluation. We discussed worrisome signs and symptoms that would warrant re-evaluation in the emergency department. All questions were answered. She is stable for discharge. Differential Diagnosis Differential Diagnoses: The differential diagnosis associated with the presentation includes (Environmental allergy, food allergy, hypersensitivity reaction) Admission/Observation Consideration of admission/observation: Escalation of care including admission/observation considered (Considered admission for recurrent allergic reaction, resolution of symptoms, no indication for admission, no airway compromise) Independent Historian Clinical information obtained from an independent historian. History obtained from or confirmed by: Friend (Present at bedside who confirms history) External Record Review External record reviewed: Outpatient record Prescription Management I considered prescription management with: Other (PPI) Discharge Plan Discharge Clinical Impression: Urticaria Patient Disposition: Home, Self-Care Instructions: Urticaria (ED) Additional Instructions: As discussed you need to contact your primary care provider tomorrow morning to arrange for a follow-up visit. They may be able to assist you in getting an appointment with an linux unix engineer sooner. You may return back to emergency department any new or worsening symptoms or concerns. Prescriptions: New omeprazole 20 mg capsule,delayed release(DR/EC) 20 mg PO DAILY Qty: 30 0RF No Action nitrofurantoin monohyd/m-cryst [Macrobid] 100 mg capsule 100 mg PO BID Qty: 10 0RF Rx Instructions: must administer with a meal/food prednisone 50 mg tablet 50 mg PO DAILY Qty: 2 0RF famotidine [Pepcid] 40 mg tablet 40 mg PO DAILY Qty: 2 0RF
[2023-04-15 00:44] VITALS: RESP 17
[2023-04-15] MEDS: methylPREDNISolone Sod Succ 125 MG/2 ML VIAL IVPUSH (00:58)
[2023-04-15] MEDS: Famotidine/PF 20 MG/2 ML VIAL IVPUSH (00:58)
[2023-04-15] MEDS: diphenhydrAMINE HCL 50 MG/ML VIAL IVPUSH (00:58)
== END 2023-04-15 02:20 | disposition home or self-care (01) ==
PROVIDERS: Emergency Provider Emergency Medicine
DX: L50.9 Urticaria, unspecified (principal)
CPT/HCPCS: 96374; 96375; 99284; J1200; J2930

== ENCOUNTER 2023-09-12 08:01 | Outpatient (AMB) | payer MEDICAID, SELFPAY ==
[2023-09-12 08:28] VITALS: BP 100/62; PULSE 79; BMI 37.4
--- NOTE | 2023-09-12 08:28 | MHC.OFFVIS ---
Intake Vital Signs 09/12/23 08:28 Height 4 ft 11 in Weight 185 lb 3.013 oz BMI 37.4 BP 100/62 Blood Pressure Location Lt brachial Position Sitting Pulse 79 Intake Visit Reasons: Follow up/chest pain Intake Note: follow up Cloud Subject Matter Expert Required: Yes Cloud Subject Matter Expert Language: Biodiesel Engineering Manager Name: Kallie [id number] Accompanied by: Friend Allergies aspirin Allergy (Unknown, Verified 09/12/23 08:29) swelling all over Medication List - Last Reconciled 09/12/23 by Raymond Perez MD No Known Home Meds HPI HPI Comments History of Present Illness Details Sarah returns for follow-up. In the past, she was seen in consultation regarding congenital heart disease. Per history, she had surgery at age of 5 months or so and this happened in the [place] area. However she does not know any details about which hospital or in fact any other information. She has not really had any regular cardiology follow-up. She has had chest pains at different times. Again, complaints about the same with a vague discomfort underneath both breasts. Nonspecific and can happen any time. No clear provoking or relieving factors. [facility] Medical History Congenital heart disease Surgical History History of heart surgery Family History Father No problems noted. Mother No problems noted. Social History Alcohol intake: never Patient Tobacco Use Status: Never used Tobacco Review of Systems Const Denies weakness ENT Denies dizziness Card Denies chest pain with activity, Denies syncope, Denies rapid heart rate, Denies pedal edema, Denies edema, Denies leg edema, Denies lightheadedness, Denies palpitations, Denies dyspnea, Denies dyspnea on exertion and Denies orthopnea Resp Denies cough, Denies dyspnea and Denies dyspnea on exertion GI Denies hematochezia and Denies change in stool character Musc Denies abnormal gait, Denies muscle cramps, Denies muscle weakness, Denies numbness, Denies radiating pain into limb and Denies tingling Neuro Denies abnormal gait, Denies dizziness, Denies syncope, Denies numbness, Denies tingling and Denies weakness Endo Denies palpitations Physical Exam Vital Signs: Last Vital Signs Pulse 79 09/12/23 08:28 BP 100/62 09/12/23 08:28 BMI result Body Mass Index 37.4 Const General: comfortable and no acute distress Orientation/consciousness: patient oriented x3 HEENT Other: Unremarkable Head: Yes normal to inspection Neck Neck: Yes normal visual inspection Chest Chest palpation & inspection: normal inspection of the chest Resp Auscultation: clear to auscultation bilaterally Cardio Palpation: normal PMI Heart sounds: S1 normal heart sound present, S2 normal heart sound present, no gallops, no murmurs and no rubs GI Palpation (GI): Soft to palpation Back/Spine/Pelvis Other: unremarkable Skin General skin exam: no rashes or lesions noted Neuro General: patient oriented x3 Extrem General: Yes normal to inspection Psych Mental Status: mental status grossly normal Office Procedures EKG Details: EKG with sinus rhythm at 79/Min; KS prolongation to 260 milliseconds; lateral T inversions; [place]. [id number], Complete Assessment & Plan Assessment & Plan (1) Congenital heart disease: Code(s): Q24.9 - Congenital malformation of heart, unspecified (2) History of heart surgery: Comment: in [place], [place], 5 months of age Code(s): Z98.890 - Other specified postprocedural states (3) Precordial chest pain: Code(s): R07.2 - Precordial pain Plan Chest pain is atypical. EKGs unchanged from before. In the last echocardiogram, LVEF seems preserved at 55-60%. No significant valvular issues. Also no evidence pulmonary hypertension. RV function seems slightly reduced. Left ventricular peak global longitudinal strain mildly reduced. Unclear what surgery she had as . We will recheck echocardiogram. Discussed with patient using linux devops engineer. Orders: Orders CA echo transthoracic complete Today Q24.9 - Congenital malformation of heart, unspecified, R07.2 - Precordial pain, Z98.890 - Other specified postprocedural states Coding Level of Care Code Est Pt Level 3 (45886) Diagnoses Congenital heart disease Q24.9 History of heart surgery Z98.890 Precordial chest pain R07.2 CPT Codes EKG - CPT: 00023-[id number], Complete ([id number])
== END 2023-09-12 08:47 | disposition home or self-care (01) ==
PROVIDERS: Referring Provider Internal Medicine; Visit Provider Internal Medicine
DX: Q24.9 Congenital malformation of heart, unspecified (principal); Z98.890 Other specified postprocedural states; R07.2 Precordial pain
CPT/HCPCS: 93010; 99213

== ENCOUNTER → 2023-09-12 08:01 | Outpatient (BNVA) | payer MEDICAID, SELFPAY | PROVIDERS: Visit Provider Internal Medicine | DX: Q24.9 Congenital malformation of heart, unspecified (principal); R07.2 Precordial pain; Z98.890 Other specified postprocedural states | CPT/HCPCS: 93005; 99212 ==

== ENCOUNTER 2024-01-26 19:07 | Emergency (ER) | payer MEDICAID, SELFPAY ==
--- NOTE | ~2024-01-26 | XR_ITS ---
EXAMINATION: XR LUMBOSACRAL SPINE CLINICAL INFORMATION: Pain status post fall. COMPARISON: None available. TECHNIQUE: Three views of the lumbosacral spine. FINDINGS: There is mild curvature of the lumbar spine, concave towards the right side. Lumbar spinal alignment is anatomic in the sagittal projection. Vertebral body heights are maintained. Intervertebral disc space heights are preserved. There is facet arthropathy at L4-L5 and L5-S1. No acute fracture. Regional soft tissue is normal in appearance. The sacroiliac joints are maintained. XR/XR lumbar spine 2-3V IMPRESSION: No acute osseous lumbar spine abnormality. Facet arthropathy at L4-L5 and L5-S1.
--- NOTE | ~2024-01-26 | XR_ITS ---
EXAMINATION: XR RIBS, RIGHT CLINICAL INFORMATION: Pain status post fall. COMPARISON: None available. TECHNIQUE: 3 views of the right ribs were obtained. A frontal chest radiograph was performed. FINDINGS: There are sternotomy sutures. Lungs are clear. No consolidation, pneumothorax, or pleural effusion. The cardiomediastinal silhouette and pulmonary vasculature are normal. Osseous structures are unremarkable. Ribs are intact. No fractures are identified. XR/XR ribs RT min 3V w CXR1V IMPRESSION: No acute cardiopulmonary disease. No rib fracture.
[2024-01-26 19:26] VITALS: BP 126/64; PULSE 80; RESP 17; TEMP 36.4; O2SAT 99; BMI 38.6
--- NOTE | 2024-01-26 19:30 | ED_ITS ---
HPI - Fall General Chief Complaint: Fall Stated Complaint: fell 01/24 rib and back pain Time Seen by Provider: 01/26/24 23:39 Source: patient Mode of arrival: ambulatory Limitations: no limitations History of Present Illness ED Provider: matt FERREIRA Narrative: Apparently patient was mopping the floor lost balance and fell landed on her right side of the chest yesterday since then complaining of pain while taking a deep breath no head injury no loss of consciousness no other injuries patient also complaining little discomfort in suprapubic area for the last few days no hematuria no dysuria Related Data Previous Rx's ?Medication ?Instructions ?Recorded cefuroxime axetil 250 mg tablet 250 mg PO BID 7 days #14 tabs 01/26/24 omeprazole 40 mg capsule,delayed 40 mg PO DAILY #30 caps 01/26/24 release tramadol 50 mg tablet 50 mg PO Q6H PRN pain #20 tabs 01/26/24 Allergies Allergy/AdvReac Type Severity Reaction Status Date / Time aspirin Allergy Unknown swelling Verified 01/26/24 19:33 all over Review of Systems 2 Review of Systems: Yes all other systems are reviewed and are negative [facility] Past Medical History Medical History Congenital heart disease Surgical History History of heart surgery Family History Family History Father No problems noted. Mother No problems noted. Social History Social History Alcohol intake: never Patient Tobacco Use Status: Never used Tobacco Advance Directives: No Advance Directives Information Provided: No Do you have a plan to hurt others: No Plan Physical Exam 2 Vital Signs: Vital Signs: Last Vital Signs Temp 97.6 F 01/26/24 19:26 Pulse 80 01/26/24 19:26 Resp 17 01/26/24 19:26 BP 126/64 01/26/24 19:26 Pulse Ox 99 01/26/24 19:26 O2 Del Method Room Air 01/26/24 19:26 BMI result Body Mass Index 38.6 Appearance: Alert. Oriented X3. No acute distress. ENT: Pharynx normal. Oral Mucosa moist Neck: Normal inspection. Neck supple. CVS: Normal heart rate and rhythm. Pulses normal. Respiratory: No respiratory distress. Equal air entry bilateral, no wheezing/rales/rhonchi , tenderness right lower rib no ecchymosis Abdomen: Soft and nontender. Bowel sounds are present, no mass palpable, no CVA tenderness Skin: Skin warm and dry. Normal skin color. Normal skin turgor. Extremities: No lower extremity edema. No calf tenderness Neuro: Oriented X 3. No motor deficit. Course Course Course Narrative: This is an RME: Additional HPI, ROS, PE not included below will be deferred to primary provider. RME assessment and note performed by: Kirstie Shirley PA-C This is a [id number]-female, with a hx of cogenital heart disease, who presents to the ER with complaints of back pain and right rib pain s/p fall. Patient states that she was mopping and felt dizzy like the room was spinning and ultimately fell back. She had back pain and right-sided rib pain. Still endorsing some room spinning Plan: labs, ekg, xr lumbar spine and right ribs Medical Decision Making Medical Decision Making MDM Narrative: Patient with right rib contusion after the minor fall rib x-ray negative for fracture abdomen soft, no signs of other injuries will treat her symptomatically for Lab Data MDM Lab Attestation statement: I reviewed the patient's lab results. 01/26/24 20:14 01/26/24 20:14 Labs: Lab Results 01/26/24 Range/Units 20:14 WBC 9.1 (4.8-10.8) X10*3/uL RBC 4.46 (4.20-5.50) X10*6/uL Hgb 13.4 (12.0-16.0) g/dl Hct 38.5 (37.0-47.0) % MCV 86.3 (80.0-98.0) fL MCH 30.0 (27.0-33.0) pg MCHC 34.8 (31.0-35.0) g/dl RDW 11.9 (11.0-16.0) % Plt Count 347 (160-400) X10*3/uL MPV 9.1 L (9.4-12.3) fL Immature Gran % (Auto) 0.2 (0.0-0.4) % Neut % (Auto) 65.8 (45-73) % Lymph % (Auto) 25.4 (20-40) % [place] % (Auto) 6.7 (2-11) % Eos % (Auto) 1.3 (0-4) % Baso % (Auto) 0.6 (0-2) % Lymph # (Auto) 2.3 (1.2-4.9) X10*3/uL [place] # (Auto) 0.6 (0.1-1.2) X10*3/uL Eos # (Auto) 0.1 (0.0-0.4) X10*3/uL Baso # (Auto) 0.1 (0.0-0.2) X10*3/uL Abs Immat Gran (auto) 0.02 (0.00-0.03) X10*3/uL Absolute Neuts (auto) 6.0 (2.0-8.3) x10*3/uL Absolute Nucleated RBC 0.000 (0.0-0.012) X10*3/uL Nucleated RBC % (auto) 0.0 (0.0-0.2) /100WBC Sodium 137 (135-145) mmol/L Potassium 4.1 (3.3-5.1) mmol/L Chloride 106 (96-108) mmol/L Carbon Dioxide 21 L (22-29) mmol/L Anion Gap 14 (12-20) BUN 9 (9-16) mg/dL Creatinine 0.77 (0.5-1.4) mg/dL Estim Creat Clear Calc 100.3 Estimated GFR > 60 Random Glucose 93 (60-115) mg/dL Calcium 9.7 (8.4-10.2) mg/dL Total Bilirubin 0.3 (0.0-1.0) mg/dL Direct Bilirubin 0.1 (0.0-0.5) mg/dL AST 16 (5-31) U/L ALT 15 (0-31) U/L Alkaline Phosphatase 101 (39-117) U/L Troponin I High Sens < 2.7 (<3.5-17.0) ng/L Total Protein 7.8 (6.5-8.0) g/dL Albumin 4.4 (3.5-5.0) g/dL Urine Color Yellow Urine Appearance Clear Urine pH 5.0 (5.0-9.0) Ur Specific [place] 1.020 (1.005-1.025) Urine Protein Negative (Neg-Trace) mg/dL Urine Glucose (UA) Negative (Negative) mg/dL Urine Ketones Negative (Negative) mg/dL Urine Blood Negative (Negative) Urine Nitrite Negative (Negative) Ur Leukocyte Esterase Moderate (2+) H (Negative) Urine RBC 3-5 H (0-2) /HPF Urine WBC 6-10 H (0-5) /HPF Ur Squamous Epith Cells 6-10 (0-2) /HPF Urine Bacteria 1+ (None Seen) Hyaline Casts 0-2 (0-2) /LPF Urine Test NEGATIVE (NEGATIVE) Independent Interpretation I performed an independent interpretation of an: Plain X-Ray Radiology Impression Discussion of test interpretation with radiology: I have reviewed the radiologist's reading. Discharge Plan Discharge Clinical Impression: Contusion of rib on right side, UTI (urinary tract infection) Patient Disposition: Home, Self-Care Instructions: Urinary Tract Infection in Women (ED), Rib Contusion (ED) Additional Instructions: Drink plenty of fluids you possibly have mild urinary tract infection Pain medication as prescribed for right rib contusion your x-rays negative for rib fracture Prescriptions: New omeprazole 40 mg capsule,delayed release(DR/EC) 40 mg PO DAILY Qty: 30 0RF cefuroxime axetil 250 mg tablet 250 mg PO BID 7 Days Qty: 14 0RF tramadol 50 mg tablet 50 mg PO Q6H PRN (Reason: pain) Qty: 20 0RF Print Language: Greenlandic
--- NOTE | 2024-01-26 19:32 | ECG_ITS ---
Test Reason : DIZZY Blood Pressure : / mmHG Vent. Rate : 070 BPM Atrial Rate : 070 BPM P-R Int : 164 ms QRS Dur : 098 ms QT Int : 422 ms P-R-T Axes : 022 -24 085 degrees QTc Int : 455 ms Normal sinus rhythm Left ventricular hypertrophy with repolarization abnormality ( R in aVL , [place] product ) Abnormal ECG No previous ECGs available Referred By: Kirstie Shirley Electronically Signed By:GELY YATES
[2024-01-26 20:18] LABS: MANUAL DIFF FLAG NO
[2024-01-26 20:21] LABS: Basophils Absolute Auto 0.1 X10*3/uL (0.0-0.2); Basophils Percent Auto 0.6 % (0-2); Eosinophils Absolute Auto 0.1 X10*3/uL (0.0-0.4); Eosinophils Percent Auto 1.3 % (0-4); Hematocrit 38.5 % (37.0-47.0); Hemoglobin 13.4 g/dl (12.0-16.0); Imm Gran Abs Auto 0.02 X10*3/uL (0.00-0.03); Imm Gran Pct Auto 0.2 % (0.0-0.4); Lymphocytes Absolute Auto 2.3 X10*3/uL (1.2-4.9); Lymphocytes Percent Auto 25.4 % (20-40); Mean Corpuscular HGB Conc 34.8 g/dl (31.0-35.0); Mean Corpuscular Volume 86.3 fL (80.0-98.0); Mean Platelet Volume 9.1 fL (9.4-12.3); Monocytes Absolute Auto 0.6 X10*3/uL (0.1-1.2); Monocytes Percent Auto 6.7 % (2-11); Neutrophils Percent Auto 65.8 % (45-73); Platelet Count 347 X10*3/uL (160-400); Red Blood Count 4.46 X10*6/uL (4.20-5.50); Red Cell Distribution Width 11.9 % (11.0-16.0); White Blood Count 9.1 X10*3/uL (4.8-10.8)
[2024-01-26 20:22] LABS: Appearance Urine Clear; Color Urine Yellow; Glucose Urine UA Negative (Negative); Leukocyte Esterase Urine Moderate (2+) (Negative); Nitrite Urine Negative (Negative); UMIC TRIGGER UACC YES; Urine Blood Negative (Negative); Urine Ketones Negative (Negative); Urine Protein Negative (Neg-Trace)
[2024-01-26 20:24] LABS: UPreg QC Valid YES; Urine Pregnancy NEGATIVE (NEGATIVE)
[2024-01-26 20:34] LABS: Alanine Aminotransferase 15 U/L (0-31); Albumin Level 4.4 g/dL (3.5-5.0); Alkaline Phosphatase 101 U/L (39-117); Anion Gap 14 (12-20); Aspartate Amino Transferase 16 U/L (5-31); Bilirubin Direct 0.1 mg/dL (0.0-0.5); Bilirubin Total 0.3 mg/dL (0.0-1.0); Blood Urea Nitrogen 9 mg/dL (9-16); Calcium 9.7 mg/dL (8.4-10.2); Carbon Dioxide 21 mmol/L (22-29); Chloride 106 mmol/L (96-108); Creatinine Clr Calc Pharmacy 100.3; Estimated Glomerular Filt Rate > 60; Glucose Random 93 mg/dL (60-115); Potassium 4.1 mmol/L (3.3-5.1); Sodium 137 mmol/L (135-145); Total Protein 7.8 g/dL (6.5-8.0)
[2024-01-26 20:41] LABS: Troponin-I High Sensitivity < 2.7 ng/L (<3.5-17.0)
[2024-01-26 21:18] LABS: Bacteria Urine 1+ (None Seen); Hyaline Casts Urine 0-2 /LPF (0-2); UACC Culture Trigger YES
[2024-01-27] MEDS: cefuroxime axetiL 250 MG TABLET PO (00:10)
[2024-01-27] MEDS: traMADoL HCL 50 MG TABLET PO (00:11)
[2024-01-27 00:14] VITALS: BP 114/62; PULSE 80; RESP 18; O2SAT 97
[2024-01-27 00:18] VITALS: BP 114/62; PULSE 80; RESP 18; TEMP 36.6; O2SAT 97
== END 2024-01-27 00:27 | disposition home or self-care (01) ==
PROVIDERS: Physician Assistant Medical; Emergency Provider Internal Medicine
DX: S20.211A Contusion of right front wall of thorax, initial encounter (principal); N39.0 Urinary tract infection, site not specified; W18.30XA Fall on same level, unspecified, initial encounter; Y93.E5 Activity, floor mopping and cleaning; Y92.9 Unspecified place or not applicable; Y99.9 Unspecified external cause status
CPT/HCPCS: 36415; 71101; 72100; 80048; 80076; 81001; 81025; 84484; 85025; 87086; 93005; 99283; 99285

== ENCOUNTER → 2024-01-26 19:32 | Outpatient (BNV) | payer MEDICAID, SELFPAY | PROVIDERS: Emergency Provider Internal Medicine; Visit Provider Internal Medicine | DX: R94.31 Abnormal electrocardiogram [ECG] [EKG] (principal) | CPT/HCPCS: 93010 ==

== ENCOUNTER 2024-03-09 18:25 | Emergency (ER) | payer MEDICAID, SELFPAY ==
--- NOTE | 2024-03-09 | ECG_ITS ---
Test Reason : CHEST PAIN Blood Pressure : / mmHG Vent. Rate : 085 BPM Atrial Rate : 085 BPM P-R Int : 192 ms QRS Dur : 096 ms QT Int : 384 ms P-R-T Axes : 019 -25 091 degrees QTc Int : 456 ms Normal sinus rhythm Left ventricular hypertrophy with repolarization abnormality ( R in aVL , [place] product ) Abnormal ECG When compared with ECG of 26-JAN-2024 19:54, No significant change was found Referred By: Generic ED Physician Electronically Signed By:GELY YATES
--- NOTE | ~2024-03-09 | XR_ITS ---
EXAMINATION: XR CHEST CLINICAL INFORMATION: Chest pain COMPARISON: Chest x-ray on 01/26/2024 TECHNIQUE: 2 views of the chest were obtained. FINDINGS: No significant abnormality is noted involving the heart, lungs, mediastinum, bony thorax or soft tissues. XR/XR chest 2V IMPRESSION: Unremarkable examination.
--- NOTE | 2024-03-09 18:35 | ED_ITS ---
HPI - Chest Pain General Chief Complaint: Dizziness Stated Complaint: CP, dizziness, Time Seen by Provider: 03/09/24 20:18 Source: patient Mode of arrival: ambulatory Limitations: no limitations History of Present Illness ED Provider: matt FERREIRA narrative: Patient is 34 years old with history of depression comes here for nonspecific chest for last 2 days today while at work patient felt dizzy with things spinning around no palpitation or shortness a breath no ear pain no history of similar symptoms in the past at this time patient is without any symptoms Related Data Previous Rx's ?Medication ?Instructions ?Recorded cefuroxime axetil 250 mg tablet 250 mg PO BID 7 days #14 tabs 01/26/24 omeprazole 40 mg capsule,delayed 40 mg PO DAILY #30 caps 01/26/24 release tramadol 50 mg tablet 50 mg PO Q6H PRN pain #20 tabs 01/26/24 meclizine 25 mg tablet 25 mg PO TID PRN dizziness #20 tabs 03/09/24 Allergies Allergy/AdvReac Type Severity Reaction Status Date / Time aspirin Allergy Unknown swelling Verified 03/09/24 18:42 all over Review of Systems 2 Review of Systems: Yes all other systems are reviewed and are negative [facility] Past Medical History Medical History Congenital heart disease Surgical History History of heart surgery Family History Family History Father No problems noted. Mother No problems noted. Social History Social History Alcohol intake: never Patient Tobacco Use Status: Never used Tobacco Advance Directives: No Advance Directives Information Provided: No Do you have a plan to hurt others: No Plan Physical Exam 2 Vital Signs: Vital Signs: Last Vital Signs Temp 98.2 F 03/09/24 19:54 Pulse 72 03/09/24 19:54 Resp 15 03/09/24 19:54 BP 106/55 L 03/09/24 19:54 Pulse Ox 98 03/09/24 19:54 O2 Del Method Room Air 03/09/24 19:54 BMI result Body Mass Index 39.1 Appearance: Alert. Oriented X3. No acute distress. Eyes: PERRLA, No Nystagmus dizziness on turning her head to left side+ ENT: Pharynx normal. Oral Mucosa moist Neck: Normal inspection. Neck supple. CVS: Normal heart rate and rhythm. Pulses normal. Respiratory: No respiratory distress. Equal air entry bilateral, no wheezing/rales/rhonchi Abdomen: Soft and nontender. Bowel sounds are present, no mass palpable, no CVA tenderness Skin: Skin warm and dry. Normal skin color. Normal skin turgor. Extremities: No lower extremity edema. No calf tenderness Neuro: Oriented X 3. No motor deficit. No sensory deficit.No cerebellar signs , cranial nerves II-XII intact Course Course Course Narrative: This is a Rapid Medical Examination (RME) performed by Minna Jerome PA-C in triage. Full HPI, ROS, assessment and treatment plan per primary provider in the Main ED. 34 yo female hx of migraines and congenital heart disease requiring surgery as a child in [place], here for eval of dizziness x2 days. worse on standing. describes this as a room spinning sensation. admits to associated blurred vision and intermittent left sided chest pain. No recent travel or long car rides. Plan: labs, cxr, ekg Medical Decision Making Medical Decision Making MDM Narrative: Patient nonspecific dizziness chest pain for last few days with heart score of 0 with history of depression EKG without any ischemic changes cardiac enzymes negative likely patient has benign positional vertigo no change in heart rate on standing no signs of central nervous system involvement. No cardiac arrhythmia, Will discharge patient home Differential Diagnosis Differential Diagnoses: The differential diagnosis associated with the presentation includes Lab Data [facility] Lab Attestation statement: I reviewed the patient's lab results. 03/09/24 19:21 03/09/24 19:21 Labs: Lab Results 03/09/24 Range/Units 19:21 WBC 7.7 (4.8-10.8) X10*3/uL RBC 4.35 (4.20-5.50) X10*6/uL Hgb 12.8 (12.0-16.0) g/dl Hct 37.5 (37.0-47.0) % MCV 86.2 (80.0-98.0) fL MCH 29.4 (27.0-33.0) pg MCHC 34.1 (31.0-35.0) g/dl RDW 11.9 (11.0-16.0) % Plt Count 379 (160-400) X10*3/uL MPV 9.1 L (9.4-12.3) fL Immature Gran % (Auto) 0.1 (0.0-0.4) % Neut % (Auto) 60.1 (45-73) % Lymph % (Auto) 30.4 (20-40) % Story % (Auto) 6.7 (2-11) % Eos % (Auto) 2.1 (0-4) % Baso % (Auto) 0.6 (0-2) % Lymph # (Auto) 2.4 (1.2-4.9) X10*3/uL Story # (Auto) 0.5 (0.1-1.2) X10*3/uL Eos # (Auto) 0.2 (0.0-0.4) X10*3/uL Baso # (Auto) 0.1 (0.0-0.2) X10*3/uL Abs Immat Gran (auto) 0.01 (0.00-0.03) X10*3/uL Absolute Neuts (auto) 4.7 (2.0-8.3) x10*3/uL Absolute Nucleated RBC 0.000 (0.0-0.012) X10*3/uL Nucleated RBC % (auto) 0.0 (0.0-0.2) /100WBC PT 12.0 (11.1-13.3) SEC INR 1.0 (0.9-1.1) Sodium 140 (135-145) mmol/L Potassium 3.8 (3.3-5.1) mmol/L Chloride 106 (96-108) mmol/L Carbon Dioxide 24 (22-29) mmol/L Anion Gap 14 (12-20) BUN 9 (9-16) mg/dL Creatinine 0.83 (0.5-1.4) mg/dL Estim Creat Clear Calc 93.8 Estimated GFR > 60 Random Glucose 98 (60-115) mg/dL Calcium 8.8 D (8.4-10.2) mg/dL Magnesium 1.9 (1.6-2.6) mg/dL Total Bilirubin 0.2 (0.0-1.0) mg/dL AST 15 (5-31) U/L ALT 16 (0-31) U/L Alkaline Phosphatase 113 (39-117) U/L Troponin I High Sens < 2.7 (<3.5-17.0) ng/L Total Protein 7.6 (6.5-8.0) g/dL Albumin 4.3 (3.5-5.0) g/dL Lipase 18 (8-78) U/L Independent Interpretation I performed an independent interpretation of an: EKG Interpretation: Normal sinus rhythm heart rate 85 beats per minute LVH no acute ST-T changes no acute ischemia Discharge Plan Discharge Clinical Impression: Benign paroxysmal positional vertigo Patient Disposition: Home, Self-Care Instructions: Benign Paroxysmal Positional Vertigo (ED) Additional Instructions: Care and cautions as advised Take meclizine 1 tablet every 8 hours as needed for dizziness Prescriptions: New meclizine 25 mg tablet 25 mg PO TID PRN (Reason: dizziness) Qty: 20 0RF No Action omeprazole 40 mg capsule,delayed release(DR/EC) 40 mg PO DAILY Qty: 30 0RF cefuroxime axetil 250 mg tablet 250 mg PO BID 7 Days Qty: 14 0RF tramadol 50 mg tablet 50 mg PO Q6H PRN (Reason: pain) Qty: 20 0RF Print Language: Citizen [place]
[2024-03-09 18:38] VITALS: BP 124/46; PULSE 81; RESP 18; TEMP 36.6; O2SAT 98; BMI 39.1
[2024-03-09 19:24] LABS: MANUAL DIFF FLAG NO
[2024-03-09 19:26] LABS: Basophils Absolute Auto 0.1 X10*3/uL (0.0-0.2); Basophils Percent Auto 0.6 % (0-2); Eosinophils Absolute Auto 0.2 X10*3/uL (0.0-0.4); Eosinophils Percent Auto 2.1 % (0-4); Hematocrit 37.5 % (37.0-47.0); Hemoglobin 12.8 g/dl (12.0-16.0); Imm Gran Abs Auto 0.01 X10*3/uL (0.00-0.03); Imm Gran Pct Auto 0.1 % (0.0-0.4); Lymphocytes Absolute Auto 2.4 X10*3/uL (1.2-4.9); Lymphocytes Percent Auto 30.4 % (20-40); Mean Corpuscular HGB Conc 34.1 g/dl (31.0-35.0); Mean Corpuscular Hemoglobin 29.4 pg (27.0-33.0); Mean Corpuscular Volume 86.2 fL (80.0-98.0); Mean Platelet Volume 9.1 fL (9.4-12.3); Monocytes Absolute Auto 0.5 X10*3/uL (0.1-1.2); Monocytes Percent Auto 6.7 % (2-11); Neutrophils Absolute Auto 4.7 x10*3/uL (2.0-8.3); Neutrophils Percent Auto 60.1 % (45-73); Platelet Count 379 X10*3/uL (160-400); Red Blood Count 4.35 X10*6/uL (4.20-5.50); Red Cell Distribution Width 11.9 % (11.0-16.0); White Blood Count 7.7 X10*3/uL (4.8-10.8)
[2024-03-09 19:42] LABS: Alanine Aminotransferase 16 U/L (0-31); Albumin Level 4.3 g/dL (3.5-5.0); Alkaline Phosphatase 113 U/L (39-117); Anion Gap 14 (12-20); Aspartate Amino Transferase 15 U/L (5-31); Bilirubin Total 0.2 mg/dL (0.0-1.0); Blood Urea Nitrogen 9 mg/dL (9-16); Calcium 8.8 mg/dL (8.4-10.2); Carbon Dioxide 24 mmol/L (22-29); Chloride 106 mmol/L (96-108); Creatinine Clr Calc Pharmacy 93.8; Estimated Glomerular Filt Rate > 60; Glucose Random 98 mg/dL (60-115); Lipase 18 U/L (8-78); Magnesium 1.9 mg/dL (1.6-2.6); Potassium 3.8 mmol/L (3.3-5.1); Sodium 140 mmol/L (135-145); Total Protein 7.6 g/dL (6.5-8.0)
[2024-03-09 19:54] VITALS: BP 106/55; PULSE 72; RESP 15; TEMP 36.8; O2SAT 98
[2024-03-09 19:58] LABS: Troponin-I High Sensitivity < 2.7 ng/L (<3.5-17.0)
[2024-03-09] MEDS: Meclizine HCl 25 MG TABLET PO (21:00)
[2024-03-09 21:39] VITALS: BP 110/61; PULSE 79; RESP 16; TEMP 36.7; O2SAT 99
== END 2024-03-09 21:40 | disposition home or self-care (01) ==
PROVIDERS: Physician Assistant Medical; Emergency Provider Internal Medicine
DX: H81.10 Benign paroxysmal vertigo, unspecified ear (principal); R07.9 Chest pain, unspecified; Z79.899 Other long term (current) drug therapy
CPT/HCPCS: 36415; 71046; 80053; 83690; 83735; 84484; 85025; 85610; 93005; 99283; 99285

== ENCOUNTER → 2024-03-09 18:26 | Outpatient (BNV) | payer MEDICAID, SELFPAY | PROVIDERS: Emergency Provider Internal Medicine; Visit Provider Internal Medicine | DX: R94.31 Abnormal electrocardiogram [ECG] [EKG] (principal) | CPT/HCPCS: 93010 ==

== ENCOUNTER 2024-03-15 15:57 | Outpatient (REF) | payer MEDICAID, SELFPAY ==
[2024-03-15 17:31] LABS: MANUAL DIFF FLAG NO
[2024-03-15 17:33] LABS: Basophils Absolute Auto 0.1 X10*3/uL (0.0-0.2); Basophils Percent Auto 0.7 % (0-2); Eosinophils Absolute Auto 0.1 X10*3/uL (0.0-0.4); Eosinophils Percent Auto 1.2 % (0-4); Imm Gran Abs Auto 0.02 X10*3/uL (0.00-0.03); Imm Gran Pct Auto 0.3 % (0.0-0.4); Lymphocytes Absolute Auto 1.8 X10*3/uL (1.2-4.9); Lymphocytes Percent Auto 24.5 % (20-40); Mean Corpuscular HGB Conc 34.2 g/dl (31.0-35.0); Mean Corpuscular Volume 87.8 fL (80.0-98.0); Mean Platelet Volume 9.6 fL (9.4-12.3); Monocytes Absolute Auto 0.6 X10*3/uL (0.1-1.2); Monocytes Percent Auto 7.5 % (2-11); Neutrophils Absolute Auto 4.8 x10*3/uL (2.0-8.3); Neutrophils Percent Auto 65.8 % (45-73); Platelet Count 368 X10*3/uL (160-400); Red Blood Count 4.33 X10*6/uL (4.20-5.50); Red Cell Distribution Width 11.9 % (11.0-16.0); White Blood Count 7.3 X10*3/uL (4.8-10.8)
[2024-03-15 18:20] LABS: Alanine Aminotransferase 18 U/L (0-31); Albumin Level 4.2 g/dL (3.5-5.0); Alkaline Phosphatase 98 U/L (39-117); Anion Gap 13 (12-20); Aspartate Amino Transferase 16 U/L (5-31); Bilirubin Total 0.4 mg/dL (0.0-1.0); Blood Urea Nitrogen 8 mg/dL (9-16); Calcium 9.5 mg/dL (8.4-10.2); Carbon Dioxide 23 mmol/L (22-29); Chloride 106 mmol/L (96-108); Estimated Glomerular Filt Rate > 60; Glucose Random 95 mg/dL (60-115); Magnesium 1.9 mg/dL (1.6-2.6); Potassium 3.9 mmol/L (3.3-5.1); Sodium 138 mmol/L (135-145); Total Protein 7.5 g/dL (6.5-8.0)
[2024-03-15 18:37] LABS: TSH reflex Free T4 1.82 uIU/mL (0.32-4.0)
[2024-03-15 18:49] LABS: Folate 11.4 ng/mL (> or = 4.0); Vitamin B12 382 pg/mL (200-900)
== END 2024-03-15 15:58 | disposition home or self-care (01) ==
LOC: HO.HHCL 15:57
PROVIDERS: Visit Provider Nurse Practitioner
DX: R20.0 Anesthesia of skin (principal); R20.2 Paresthesia of skin; R42 Dizziness and giddiness
CPT/HCPCS: 36415; 80053; 82607; 82746; 83735; 84443; 85025

== ENCOUNTER → 2024-10-02 15:14 | Outpatient (BNVA) | payer MEDICAID, SELFPAY | PROVIDERS: PCP Nurse Practitioner; Visit Provider Physician Assistant Surgical ==

== ENCOUNTER 2024-10-09 08:04 | Outpatient (AMB) | payer MEDICAID, SELFPAY ==
--- OUTSIDE RECORDS SUMMARY | 2024-10-09 08:11 | XMS_ITS | Encounter Summary ---
Author Organization [facility] Address [address] [place] [address] [address] [place] [address] Care Team Providers Care Stone Paver Name Role Phone Cindy Fitzpatrick ADDRESSING MACHINE OPERATOR Primary Care Provider Loreta Garcia RIG SUPERVISOR Primary Care Provider [phone] Reason for Visit * Reason Onset Date Comments Appointment Request 11/22/2022 Encounter Details Date Type Department Care Team ([facility] st Contact Info) Description 11/22/2022 Telephone [facility] [address] [place] [address] [place] Cindy, [facility] [address] [place] [address] Appointment Request Social History Tobacco Use Types Packs/Day Years Used Date Smoking Tobacco: Never Passive Smoke Exposure: Never Smokeless Tobacco: Never Alcohol Use Standard Drinks/Week Comments Never 0 (1 standard drink = 0.6 oz pur e alcohol) Comments Unknown Sex and Gender Information Value Date Recorded Sex Assigned at Female 06/14/2022 10:39 AM EDT Legal Sex Female 10:39 AM EDT Gender Identity Female 06/14/2022 10:39 AM EDT Sexual Orientation Choose not to disclose 2021 10:39 AM EDT COVID-19 Exposure Response Date Recorded In the last 10 days, have yo u been in contact with someone who was confirmed or suspected to have Coronavirus/COVID-19? No / Unsure 11/08/2022 2:41 PM EDT documented as of this encounter Miscellaneous Notes * Telephone Encounter - Leon Dean Iona - 11/22/2022 9:28 AM EDT Tc from pt requesting a TP appt with New Provider. Please contact pt at [phone] Lithuanian Speaker documented in this encounter Plan of Treatment Upcoming Encounters Date Type Department Care Team (Late st Contact Info) Description 10/12/2024 10:00 AM EST Office Visit [facility] [address] [place] [address] Loreta Garcia NP [address] [place] [address] documented as of this encounter Visit Diagnoses Not on filedocumented in this encounter Care Teams Stone Paver Relationship Specialty Start Date End Date Cindy Fitzpatrick FNP [address] [place] [id number] PCP - General Family Medicine 10/11/22 07/24/23 Loreta Garcia NP [address] [place] [id number] PCP - General Family Medicine 07/25/23 documented as of this encounter
--- OUTSIDE RECORDS SUMMARY | 2024-10-09 08:11 | XMS_ITS | Clinical Summary ---
Demographics Address [address] [place] [address] [address] [place] [address] Mobile Phone Work Phone Home Phone Email Address Preferred Language es Marital Status Unknown Episcopalian Affiliation Unknown Race White Ethnic Group or Author Organization [employer] Address [address] [facility] 7[address] [place] [address] Care Team Providers Care Food Specialist Name Role Phone Loreta Garcia NP Primary Care Provider [phone] Allergies Active Allergy Reactions Criticality Noted Date Comments Aspirin Swelling 05/18/2021 Other Reaction(s): Stomach cramps Medications omeprazole (PriLOSEC) [address] capsule Take 20 mg by mouth Once per day. 3 Active acetaminophen (Tylenol) 500 MG tablet Take 2 tablets by mouth every 4 (four) hours. 2 Active meclizine (Antivert) 25 MG tablet 25 MG ORALLY 3 TIMES A DAY NEEDED FOR DIZZINESS 4 Active Ibuprofen (ADVIL LIQUI-GELS MINIS PO) Take by mouth. Activ e Active Problems Problem Noted Date Diagnosed Date Chronic bilateral low back pain 03/16/2024 Assessment & Plan (03/16/2024 8:36 AM EDT): -will order lumbar x-ray given reported history of fracture and complaint of bilateral lower extremity numbness and tingling Dizzinesses 03/16/2024 Assessment & Plan (03/16/2024 8:43 AM EDT): -orthostatic BP's obtained with negative findings -normal neuro exam -advised to start meclizine rx'ed in the ED and assess for symptom persistence -advised increased fluid intake and slow position changes -will order out pt EKG and refer to cardiology given unexplained syncope and history of congential heart disease -follow-up 2-3 week to assess progress -will schedule for transfer patient visit Numbness and tingling of both lower extremities 03/16/2024 Assessment & Plan (03/16/2024 8:47 AM EDT): -unclear etiology -may be peripheral neuropathy -labs ordered to evaluate for vitamin deficiencies, thyroid dysfunction, anemia and diabetes Dental caries 04/08/2023 Partial edentulism 04/05/2023 Dental plaque on multiple teeth 10/28/2022 Encounters Date Type Department Care Team Description 09/25/2024 Telephone [facility] [address] [place] [address] Cortney Brooks MA chartprep 09/11/2024 Telephone [facility] [address] [place] [address] Cortney Brooks MA change 10/12 appt pm to am appt from Last 3 Months Social History Tobacco Use Types Packs/Day Years Used Date Smoking Tobacco: Never Passive Smoke Exposure: Never Smokeless Tobacco: Never Tobacco Cessation:Counseling Given: Not Answered Alcohol Use Standard Drinks/Week Comments Never 0 (1 standard drink = 0.6 oz pur e alcohol) Housing Stability Answer Date Recorded What is your housing situation today? I have imeldaloraine vega 10/19/[address] you li ve. Do you have problems with any of the following? None of the above 10/19/2023 Food Insecurity Answer Date Recorded Within the past 12 months, y ou worried that your food would run out before you got money to buy more: Sometimes True 2023 Within the past 12 months,th e food you bought just didn't last and you didn't have enough money to get more: Sometimes True 10/19/2023 Transportation Answer Date Recorded In the past 12 months, has l ack of transportation kept you from medical appts, meetings, work or from getting things needed for daily living? No 10/19/2023 Utilities Answer Date Recorded In the past 12 months, has t he electric, gas, oil or water company threatened to shut off services in your home? No 10/19/2023 Comments Unknown Sex and Gender Information Value Date Recorded Sex Assigned at Female 06/14/2022 10:39 AM EDT Legal Sex Female 10:39 AM EDT Gender Identity Female 06/14/2022 10:39 AM EDT Sexual Orientation Choose not to disclose 2021 10:39 AM EDT Last Filed Vital Signs Vital Sign Reading Time Taken Comments Blood Pressure 100/78 03/15/2024 3:36 PM EDT Pulse 74 03/15/2024 3:36 PM EDT Temperature 36.7 ??C (98.1 ??F) 03/15/2024 2:41 PM ED T Respiratory Rate 26 03/15/2024 2:41 PM EDT Oxygen Saturation 98% 03/15/2024 2:41 PM EDT Inhaled Oxygen Concentration - - Weight 87.8 kg (193 lb 9.6 oz) 03/15/2024 2:41 P M EDT Height 151.1 cm (4' 11.5 ) 03/15/2024 2:41 PM ED T Body Mass Index 38.45 03/15/2024 2:41 PM EDT Plan of Treatment Upcoming Encounters Date Type Department Care Team (Late st Contact Info) Description 10/12/2024 10:00 AM EST Office Visit [facility] [address] [place] [address] Loreta Garcia NP [address] [place] [address] Health Maintenance Due Date Last Done Comments Dental X-Ray: Bitewings 1992 Dental X-Ray: Full Mouth 1992 Depression Screening 1992 Alcohol/Substance Use Screening 2004 Family Planning (PISQ) 01/13/2007 Hepatitis B Vaccines (1 of 3 - 19+ 3-dose series) 01/13/2011 Pap Smear 01/13/2013 Cervical Cancer Screening 01/13/2022 HPV/Cotest 01/13/2022 Dental Oral Exam 02/22/2023 08/24/2022 Dental Prophylaxis 05/01/2023 10/28/2022 COVID-19 Vaccine (2023-2 5 season) 2024 03/02/2022, 06/08/2021, 05/04/2021 Influenza Vaccine (#1) 2024 05/04/2021 SDOH Screening 10/18/2024 10/19/2023 Tobacco Screening 03/15/2025 03/15/2024 DTaP/Tdap/Td Vaccines (2 - T d or Tdap) 11/21/2031 11/20/2021 Zoster Vaccines (1 of 2) 01/13/2042 RSV Patients and Patients Aged 60 years or older (1 - 1-dose 75+ series) 01/13/2067 HIV Screening Completed 09/08/2021 Hepatitis C Screening Completed 09/08/2021 HIB Vaccines Aged Out No longer eligi ble based on patient's age to complete this topic HPV Vaccines Aged Out No longer eligi ble based on patient's age to complete this topic Hepatitis A Vaccines Aged Out No long er eligible based on patient's age to complete this topic IPV Vaccines Aged Out No longer eligi ble based on patient's age to complete this topic Meningococcal Vaccine Aged Out No shannon remington eligible based on patient's age to complete this topic Pneumococcal Vaccine: Pediatrics (0 to 5 Years) and At-Risk Patients (6 to 49) Years) Aged Out No longer eligible b ased on patient's age to complete this topic RSV under 20 months Aged Out No longe r eligible based on patient's age to complete this topic Rotavirus Vaccines Aged Out No longer eligible based on patient's age to complete this topic Procedures Procedure Name Priority Date/Time Associated Diagnosis Comments PROPHYLAXIS - ADULT Routine 10/28/2022 1 :00 PM EDT Dental plaque on multiple teeth COMPREHENSIVE ORAL EVALUATION - NEW OR ESTABLISHED PATIENT Routine 08/24/2022 10:00 AM EST ZZZ HISTORICAL HEPATITIS C AB W/REFL TO HCV RNA, QN, PCR Routine 09/08/2021 2:33 PM EST HIV 1/2 ANTIGEN/ANTIBODY, FOURTH GENERATION W/RFL Routine 09/08/2021 2:33 PM EST from Last 3 Months or Most Recently Relevant to Health Maintenance Results * HEPATITIS C AB W/REFL TO HCV RNA, QN, PCR (09/08/2021 2:33 PM EST) HEPATITIS C ANTIBODY NON-REACT ANY NON-REACT ANY [facility] INDEX 0.03 <1.00 [facility] Comment: ?? HCV antibody was non-reactive. There is no laboratory ?? evidence of HCV infection. ?? In most cases, no further action is required. However, if recent HCV exposure is suspected, a test for HCV RNA (test code 32128) is suggested. ?? For additional information please refer to http://IBillionaire.Plango/faq/UPQ67m6 (This link is being provided for informational/ educational purposes only.) ?? 09/08/2021 2:33 PM EST Jeannette Browne MD HISTORICAL/NON ORDERABLE LAB S Final Result Performing Organization Address [facility] Phone Number [facility] [address] * HIV 1/2 ANTIGEN/ANTIBODY,FOURTH GENERATION W/RFL (09/08/2021 2:33 PM EST) Pathologist [facility] HIV-1/2 ANTIGEN AND ANTIBODIES, 4TH GENERATION W/ REFLEX NON-REACT ANY NON-REACT ANY [facility] Comment: HIV-1 antigen and HIV-1/HIV-2 antibodies were not detected. There is no laboratory evidence of HIV infection. ?? PLEASE NOTE: This information has been disclosed to you from records whose confidentiality may be protected by state law. ??If your state requires such protection, then the state law prohibits you from making any further disclosure of the information without the specific written consent of the person to whom it pertains, or as otherwise permitted by law. A general authorization for the release of medical or other information is NOT sufficient for this purpose. ? For additional information please refer to http://IBillionaire.Plango/faq/ZJO614 (This link is being provided for informational/ educational purposes only.) ? The performance of this assay has not been clinically validated in patients less than 2 years old. ?? 09/08/2021 2:33 PM EST Jeannette Browne MD LAB BLOOD ORDERABLES Final R esult Performing Organization Address [facility] Phone Number [facility] [address] from Last 3 Months or Most Recently Relevant to Health Maintenance Insurance * Guarantor: Ruth Montes De Oca Account Type Relation to Patient Date of Phone Billing Address Personal/Family Self [address] [place] [address] [place] [facility] MEDICAID STAND ADULT * Guarantor: Monet Ruth Enrique Account Type Relation to Patient Date of Phone Billing Address Personal/Family Self [address] [place] [address] * Guarantor: Monica Montes De Ocaa A Account Type Relation to Patient Date of Phone Billing Address Personal/Family Self [address] [place] [address] * Guarantor: Ruth Montes De Oca Account Type Relation to Patient Date of Phone Billing Address Personal/Family Self [address] [place] [address] Care Teams Food Specialist Relationship Specialty Start Date End Date Loreta Garcia NP [address] [place] [address] PCP - General Family Medicine 07/25/23
--- OUTSIDE RECORDS SUMMARY | 2024-10-09 08:11 | XMS_ITS | Encounter Summary ---
Author Organization [employer] Address [address] [facility] [address] [facility] [address] 7[address] [place] [address] Care Team Providers Care Continuous Crusher Operator Name Role Phone Loreta Garcia LEW Primary Care Provider [phone] Reason for Visit * Reason Onset Date Comments change 10/12 appt pm to am appt 09/11/2024 Encounter Details Date Type Department Care Team ([facility] st Contact Info) Description 09/11/2024 Telephone [facility] [address] [place] [address] Cortney Brooks MA change 10/12 appt pm to am appt Social History Tobacco Use Types Packs/Day Years Used Date Smoking Tobacco: Never Passive Smoke Exposure: Never Smokeless Tobacco: Never Alcohol Use Standard Drinks/Week Comments Never 0 (1 standard drink = 0.6 oz pur e alcohol) Housing Stability Answer Date Recorded What is your housing situation today? I have imelda vega 10/19/[address] you [...] not to disclose 2021 10:39 AM EDT documented as of this encounter Miscellaneous Notes * Telephone Encounter - Cortney Brooks MA - 09/11/2024 11:32 AM EST T/C placed spoke with pt to notify that her appointment on 10/12/24 @ 3:45 pm was change. Pt agree to come in on 10/12/24 @10:00 am for follow up visit. documented in this encounter Plan of Treatment Upcoming Encounters Date Type Department Care Team (Late st Contact Info) Description 10/12/2024 10:00 AM EST Office Visit [facility] [address] [place] [address] Loreta Garcia NP [address] [place] [address] documented as of this encounter Visit Diagnoses Not on filedocumented in this encounter Care Teams Continuous Crusher Operator Relationship Specialty Start Date End Date Loreta Garcia NP [address] [place] [address] PCP - General Family Medicine 07/25/23 documented as of this encounter
--- OUTSIDE RECORDS SUMMARY | 2024-10-09 08:11 | XMS_ITS | Encounter Summary ---
Author Organization [employer] Address [address] [facility] 7t [place] [address] Care Team Providers Care Ton Container Shipper Name Role Phone Loreta Garcia LEW Primary Care Provider [phone] Reason for Visit * Reason Onset Date Comments chartprep 09/25/2024 Encounter Details Date Type Department Care Team ([facility] st Contact Info) Description 09/25/2024 Telephone [facility] MED[facility] [address] [place] [address] Cortney Brooks MA chartprep Social History Tobacco Use Types Packs/Day Years [...] Telephone Encounter - Cortney Brooks MA - 09/25/2024 3:06 PM EST Chart Prep Labs: done Images: done except XR chest Vaccines due: yes Referrals: complete cardiology appt was on 09/12/23 Screenings: pap smear Overdue care gaps: Sbirt, PHQ-9, RENETTA-7 documented in this encounter Plan of Treatment Upcoming Encounters Date Type Department Care Team (Late st Contact Info) Description 10/12/2024 10:00 AM EST Office Visit [facility] MEDICINE [address] [place] [address] Loreta Garcia NP [address] [place] [address] documented as of this encounter Visit Diagnoses Not on filedocumented in this encounter Care Teams Ton Container Shipper Relationship Specialty Start Date End Date Loreta Garcia NP [address] [place] [address] PCP - General Family Medicine 07/25/23 documented as of this encounter
--- OUTSIDE RECORDS SUMMARY | 2024-10-09 08:11 | XMS_ITS | Encounter Summary ---
Author Organization [facility] Address [address] [place] [address] Care Team Providers Care Lyft Driver Name Role Phone Gissel MurdockP Primary Care Provider Stephen [facility] LIZBETH Primary Care Provider [phone] Loreta Garcia NP Primary Care Provider [phone] Encounter Details Date Type Department Care Team ([facility] Contact Info) Description 08/04/2022 Abstract [facility] [address] [place] [address] Saurabh Benavidez DDS [address] [place] [address] Social History Tobacco Use Types Packs/Day Years Used Date Smoking Tobacco: Never Assessed Comments Unknown Sex and Gender Information Value Date Recorded Sex Assigned at Female 06/14/2022 10:39 AM EDT Legal Sex Female 10:39 AM EDT Gender Identity Female 06/14/2022 10:39 AM EDT Sexual Orientation Choose not to disclose 2021 10:39 AM EDT documented as of this encounter Plan of Treatment Upcoming Encounters Date Type Department Care Team (Late Contact Info) Description 10/12/2024 10:00 AM EST Office Visit [facility] [address] [place] [address] Loreta Garcia NP [address] [place] [address] documented as of this encounter Visit Diagnoses Not on filedocumented in this encounter Care Teams Lyft Driver Relationship Specialty Start Date End Date Gissel Murdock FNP PCP - General 07/06/22 10/10/22 ChesterCindy FNP [address] [place] [address] PCP - General Family Medicine 10/11/22 07/24/23 Loreta Garcia NP [address] [place] [address] PCP - General Family Medicine 07/25/23 documented as of this encounter
--- NOTE | 2024-10-09 11:35 | A.OFFVIS_ITS ---
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: Yes Electrician Technician Services: Electrician Technician Present Information Interpreted: clinical only Allergies aspirin Allergy (Unknown, Verified 10/09/24 11:35) swelling all over Medication List - Last Reconciled 10/09/24 by Ronal Collins MD omeprazole 40 mg PO DAILY HPI HPI 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*: Details: Start time: 11.29am, End time: 12.19pm ?I spent 45 minutes speaking with the patient on the phone plus an additional 5 minutes reviewing and updating records for a total of 50 minutes HPI Comments Details: Previous weight loss efforts: self diets Wakes up: 10am, sleeps: 2am Breakfast: skips Lunch: 12pm (pasta, rice) Dinner: skips Snacks: none Exercise: none Fluids: Coffee: none, tea: none, soda: Coca 2-3/day, juice: daily, ETOH: none PFSH Medical History (Updated 10/09/24 @ 11:55 by Ronal Collins MD) Anxiety GERD (gastroesophageal reflux disease) BMI 39.0-39.9,adult Obesity Congenital heart disease Surgical History (System 03/22/24 @ 16:37 by Mikaela Landeros) History of heart surgery Family History (Updated 10/02/24 @ 15:42 by Danica Salazar CMA) Father No problems noted. Mother No problems noted. Daughter No problems noted. Daughter No problems noted. Daughter No problems noted. Son No problems noted. Social History (System 03/22/24 @ 16:37 by Mikaela Landeros) Alcohol intake: never Patient Tobacco Use Status: Never used Tobacco Telehealth Telehealth Telehealth Platform: Telephone Location of provider rendering services: practice address Location of patient: address on file Patient Identification confirmed using: Name, : Yes Telehealth method: voice only Patient verbally consented to treatment: Yes Patient verbally consented to billing insurance company: Yes Patient informed of any privacy concerns related to visit: Yes Minutes spent on Phone/Video with Pt.: 50 Assessment & Plan Assessment & Plan (1) Obesity: Code(s): E66.9 - Obesity, unspecified Category: Medical Qualifiers: Obesity type: due to excess calories Obesity classification: adult class 2 (BMI 35 - 39.9) Serious obesity comorbidity presence: without serious comorbidity Body mass index: BMI 39.0-39.9 Qualified Code(s): E66.812 - Obesity, class 2; E66.09 - Other obesity due to excess calories; Z68.39 - Body mass index [BMI] 39.0-39.9, adult Plan: 1.? Plan for lap sleeve gastrectomy. If diaphragmatic or ventral hernias are present at time of surgery, these will be repaired laparoscopically as well. I emphasized the importance of close follow-up, adherence to instructions and good communication. The surgery does not replace the need to change your lifestlyle which is the cause of the obesity problem. The surgery provides the m otivation to try again to change your lifestyle, it reduces the appetite and make the transition to a better lifestyle easier and doubles the amount of weight you would lose compared to doing the lifestyle change without the surgery. You will need to be on a liquid diet with protein shakes for 2 weeks before surgery to maximize weight loss and boost your nutritional status to recover better from surgery and also for the first two weeks after surgery to let the stomach heal before we introduce other foods. After the first 2 weeks we will introduce protein bars and soft foods like scrambled eggs, cottage cheese and yogurt and after the 6th week will introduce meat, fish and cooked vegetables in small amounts. Over time you should be able to eat everything in small amounts. Side effects like nausea, vomiting, heartburn or abdominal pain are not common in the practice unless you are not following in the practice. This operation requires lifetime commitment to following in our practice and communication with me. You will much less weight and experience side effects if you don?t communicate or not following in the practice. Complications are rare and in our practice is about 1/10 of the national average. However, you can develop bleeding that may require transfusion (hasn?t happened for year in the practice), you may from complications (we did not have any deaths in the practice) and infections. Infections are usually a result of breakdown in communication or not understanding or following directions correctly. They are difficult to treat, they can happen during the first 6 weeks, they may require to be in the hospital for weeks or even months, not being able to eat by mouth and you may have drains and surgeries to try and correct the issue. Other risks and complications include possible conversion to an open procedure, leaks, small bowel obstruction, blood clots, cardiac, or pulmonary complications, as care home complications such as ulcers, insufficient weight loss and vitamin deficiencies. 2. Nutritional counseling. Start with one CELEBRATE REBUILD protein (buy at [facility] [employer] [facility]) shake (HALF scoop in 8oz low fat unsweetened almond milk each) at 11am-1pm, 1 protein bar (CELEBRATE protein bars, buy at [facility] [employer]) at 2pm-4pm, dinner at 5pm (8 forks of protein and 8 forks of salad/vegetables), one CELEBRATE REBUILD protein (buy at [facility] [employer]) shake (HALF scoop in 8oz low fat unsweetened almond milk each) at 7pm-9pm AND one more protein bar after dinner at 10pm-12am (midnight). So you do 2 protein shakes, 2 protein bars and one meal per day. Meal to include lean meat (beef, fish, pork, turkey, chicken), or ukrainian yogurt, or egg whites, or beans with a salad with olive oil and fruits (berries, pears, apples, kiwi). Avoid salt, breads, potatoes, rice, pasta, desserts. 3. Each shake would be drunk slowly, like coffee in a period of 2 hours. 4. Cut each bar in 4 pieces and eat each piece in 30min ?to make each bar last 2 hours. 5. I emphasized the importance of measuring accurately the food portion and measure it when serving the food in plate 6. The meal portions include 8 full-size forks of meat and 8 full-size forks of salad. You always eat the meat portion but you can replace up to 4 forks for salad/vegetables with rice, potatoes or pasta, or a fruit ?if you like. The less you do it the better weight loss will be. 7. One full-size fork is what it can be scooped on the fork without falling aside and not what can be bit with the fork. Use regular forks like those you find in a typical restaurant. 8.? Please buy the body composition scale we discussed and send me weight measurements as soon as possible and then once a week. Always include your diet and exercise plan. 9. Start walking outside daily, tracking calories with a goal of 300 calories per day, daily. Goal is to burn 2000 calories per week on exercise, which means either 300 calories daily, or 400 calories 5 days per week, or 500 calories 4 days per week, or 650 calories 3 days per week. 10. The best choice would be to purchase a stationary bike at home that can track calories. Let me know if you do so I can give you an exercise plan. 11.?It is important of avoiding and for at least 18 months postoperatively and has been discussed at the infosession. 12. Goal is to lose at least 1.5-2lbs per week 13. Goal to lose 10% of your weight before surgery, which is about 20lbs. Ultimate weight goal: 173lbs before surgery 14. Please follow the diet plan exactly without any change. If you don't like something about the plan or you feel hungry you need to communicate with me so I can help you revise the plan. You should not change the plan yourself 15. To be scheduled for EGD to assess the stomach's anatomy. The possibility of biopsies was discussed. Patient needs to avoid use of NSAIDs and aspirin for 1 week prior to EGD. You must be on liquids only the day before your endoscopy. Risks of perforation and bleeding was discussed with the patient. This will be an outpatient procedure with IV sedation. Orders: Orders Hemoglobin A1c Today E66.9 - Obesity, unspecified, Z68.39 - Body mass index [BMI] 39.0-39.9, adult Lipid Panel Today E66.9 - Obesity, unspecified, Z68.39 - Body mass index [BMI] 39.0-39.9, adult IRON PROFILE Today E66.9 - Obesity, unspecified, Z68.39 - Body mass index [BMI] 39.0-39.9, adult Comprehensive Met. Panel Today E66.9 - Obesity, unspecified, Z68.39 - Body mass index [BMI] 39.0-39.9, adult Vitamin B12 and Folate Today E66.9 - Obesity, unspecified, Z68.39 - Body mass index [BMI] 39.0-39.9, adult Zinc Today E66.9 - Obesity, unspecified, Z68.39 - Body mass index [BMI] 39.0- 39.9, adult Vitamin B1 Today E66.9 - Obesity, unspecified, Z68.39 - Body mass index [BMI] 39.0-39.9, adult Vitamin A Today E66.9 - Obesity, unspecified, Z68.39 - Body mass index [BMI] 39.0-39.9, adult TSH reflex Free T4 Today E66.9 - Obesity, unspecified, Z68.39 - Body mass index [BMI] 39.0-39.9, adult Ferritin Today E66.9 - Obesity, unspecified, Z68.39 - Body mass index [BMI] 39.0-39.9, adult Vitamin D 25-OH Total Today E66.9 - Obesity, unspecified, Z68.39 - Body mass index [BMI] 39.0-39.9, adult XR chest 2V Today E66.9 - Obesity, unspecified, Z68.39 - Body mass index [BMI] 39.0-39.9, adult CA echo transthorac w con Today Q24.9 - Congenital malformation of heart, unspecified, Z98.890 - Other specified postprocedural states Insulin Today E66.9 - Obesity, unspecified, Z68.39 - Body mass index [BMI] 39.0-39.9, adult H Pylori Breath Test Today E66.9 - Obesity, unspecified, Z68.39 - Body mass index [BMI] 39.0-39.9, adult Complete Blood Count Auto Diff Today E66.9 - Obesity, unspecified, Z68.39 - Body mass index [BMI] 39.0-39.9, adult C Reactive Protein Today E66.9 - Obesity, unspecified, Z68.39 - Body mass index [BMI] 39.0-39.9, adult US abdomen comp w elastography Today E66.9 - Obesity, unspecified, Z68.39 - Body mass index [BMI] 39.0-39.9, adult ECG 12 lead EKG Today E66.9 - Obesity, unspecified, Z68.39 - Body mass index [BMI] 39.0-39.9, adult FL upper GI w air Today E66.9 - Obesity, unspecified, Z68.39 - Body mass index [BMI] 39.0-39.9, adult Referrals Nutrition/Dietitian Referral E66.9 - Obesity, unspecified, Z68.39 - Body mass index [BMI] 39.0-39.9, adult Behavioral Health Referral E66.9 - Obesity, unspecified, Z68.39 - Body mass index [BMI] 39.0-39.9, adult
[2024-10-09 11:50] VITALS: BMI 39.1
== END 2024-10-09 12:20 | disposition home or self-care (01) ==
PROVIDERS: PCP Nurse Practitioner; Visit Provider Surgery
DX: E66.812 Obesity, class 2 (principal); E66.09 Other obesity due to excess calories; Z68.39 Body mass index [BMI] 39.0-39.9, adult
CPT/HCPCS: 99204

== ENCOUNTER 2024-11-08 13:53 | Outpatient (REF) | payer MEDICAID, SELFPAY ==
--- NOTE | ~2024-11-08 | US_ITS ---
EXAMINATION: US ABDOMEN COMPLETE WITH LIVER ELASTOGRAPHY HISTORY: E66.9 - Obesity, unspecified TECHNIQUE: Real-time grayscale ultrasound imaging of the abdomen was performed and images were reviewed. COMPARISON: There are no prior studies for comparison. FINDINGS: Liver: The right lobe of the liver measures 16.2 cm in size. The left lobe of the liver measures 8.0 cm in size. The liver demonstrates increased echotexture, consistent with steatosis. No focal mass or intrahepatic biliary ductal dilatation is identified. There is normal hepatopedal flow in the portal vein. Ultrasound elastography of the liver was performed with 10 separate measurements of the liver parenchyma with the patient in the supine position. Measurements were obtained approximately 2 cm below Carrillo's capsule and perpendicular to the capsule. Images are of satisfactory quality. The median shear wave velocity is 1.42 m/s. The interquartile range/median (IQR/median) is 0.20. Gallbladder and biliary tree: There is a 2.1 cm shadowing calculus in the gallbladder. There is no wall thickening or pericholecystic fluid. There is no sonographic Mclain sign. The common bile duct is normal in caliber measuring 3 mm. Kidneys: The right kidney measures 9.5 cm in length. The left kidney measures 10.4 cm in length. There is a tiny echogenic focus in the cortex of the right kidney in the interpolar region which may represent a calcification. The kidneys are unremarkable, without evidence of masses, hydronephrosis, or calculi. Pancreas: The pancreatic head, neck, and body are unremarkable. The pancreatic tail is obscured by bowel gas. Spleen: The spleen is normal in size and contour, measuring 11.7 cm in length. Abdominal aorta and inferior vena cava: The visualized portions of the abdominal aorta and inferior vena cava are normal in caliber. There is no free fluid in the abdomen. US/US abdomen comp w elastography IMPRESSION: Hepatic steatosis. The median shear wave velocity in the liver is 1.42 m/s, corresponding to a median liver stiffness of 6.38 kPa. The IQR/median value is 0.20. This is indicative of a poor quality data set, and the estimated liver stiffness may be unreliable. Findings are indicative of a low elastography value which rules out advanced chronic liver disease in asymptomatic patients. REFERENCE: Society of Radiologists in Ultrasound Liver Stiffness Thresholds (2020): LIVER STIFFNESS THRESHOLDS: *Shear wave velocity less than 1.3 m/s (Liver Stiffness equal or less than 5 kPa): High probability of being normal. *Shear wave velocity less than 1.7 m/s (Liver Stiffness less than 9 kPa): In the absence of other known clinical signs, rules out compensated advanced chronic liver disease. *Shear wave velocity between 1.7-2.1 m/s (Liver Stiffness 9-13 kPa): Suggestive of compensated advanced chronic liver disease but need further test for confirmation. *Shear wave velocity between 2.1-2.4 m/s (Liver Stiffness 13-17 kPa): Rules in compensated advanced chronic liver disease. *Shear wave velocity greater than 2.4 m/s (Liver Stiffness over 17 kPa): Suggestive of clinically significant portal hypertension. QUALITY OF DATA SET: *IQR/Median value equal or less than 0.15 implies a quality data set. *IQR/Median value over 0.15 implies a poor quality data set. SIGNIFICANT CHANGE FROM PRIOR EXAM: Significant change if liver stiffness measurement is 10% or greater from prior exam. OTHER CONSIDERATIONS: The stage of liver fibrosis may be overestimated in the setting of acute hepatitis, liver inflammation, elevated liver function tests, hepatic vascular congestion, obstructive cholestasis, non-fasting state, and infiltrative diseases such as amyloidosis and lymphoma. In some patients with NAFLD, the liver stiffness thresholds for compensated advanced chronic liver disease may be lower. In causes other than viral hepatitis and NAFLD, liver stiffness thresholds are not well established. Electronically signed by: Domenic Chambers MD 11/08/2024 03:46 PM EDT
== END 2024-11-08 13:54 | disposition home or self-care (01) ==
LOC: HO.US 13:53
PROVIDERS: PCP Nurse Practitioner; Visit Provider Surgery
DX: E66.9 Obesity, unspecified (principal); Z68.39 Body mass index [BMI] 39.0-39.9, adult
CPT/HCPCS: 76700; 76981

== ENCOUNTER → 2024-11-08 13:55 | Outpatient (BNV) | payer MEDICAID, SELFPAY | PROVIDERS: PCP Nurse Practitioner; Visit Provider Radiology Diagnostic Radiology | DX: K76.0 Fatty (change of) liver, not elsewhere classified (principal) | CPT/HCPCS: 76700; 76981 ==